=== PATIENT | female | born 1965 | race Caucasian/White ===

== ENCOUNTER 2018-04-21 21:59 | Emergency (ER) | payer BC ==
[~2018-04-21] VITALS: Ht 162.6 cm; Wt 64.4 kg
[~2018-04-21 21:59] MED LIST: ALBU.083IS IH; ALBU90OI INH; AMOX500 PO; BARIATRIC MULTIVIT PO; BROVANA IH; BUDE.25 NEB; CLAR500 PO; CYAN100 PO; CYCL10 PO; Cyclobenzaprine5 MG PO; DOCU100; HYDACE5 PO; HYDGUAL120 PO; IBUP800; KETO10 PO; LORA10ER PO; MONT10T PO; NAPR550 PO; Naprosyn375 MG PO; ONDA4ODT MM; Percocet 5-3251 EACH PO; RXHYDGUAS PO; [UNRECOGNIZED DRUG - REMARK]
[2018-04-22 03:03] LABS: Source, Urine Clean Catch
[2018-04-22 03:05] LABS: Bilirubin, Urine Neg (Neg); Blood, Urine Neg (Neg); Glucose Qualitative, Urine Neg (Neg); Ketones, Urine Neg (Neg); Leukocyte Esterase, Urine Neg (Neg); Nitrite, Urine Neg (Neg); Protein, Urine Neg (Neg); Specific Gravity, Urine 1.005 (1.003-1.022); Urobilinogen, Urine NORM (Normal)
[2018-04-22 03:14] LABS: Appearance, Urine Clear (Clear); Color, Urine Yellow (P-Yellow)
[2018-04-22 03:25] LABS: Calcium, Ionized (POC) 1.12 mmol/L (1.10-1.46); Chloride (POC) 103 mmol/L (98-108); Creatinine (POC) 0.5 mg/dL (0.6-1.0); Glucose (ISTAT POC) 81 mg/dL (70-99); Hemoglobin (POC) 10.5 g/dL (12.0-16.0); Potassium (POC) 4.1 mmol/L (3.5-5.5); Sodium (POC) 136 mmol/L (135-148); Total CO2 (POC) 28 mmol/L (21-32)
[2018-04-22] MEDS ORDERED: Dazidox10 MG PO (03:27)
== END 2018-04-22 03:48 | disposition home or self-care (01) ==
LOC: ER 21:59
PROVIDERS: Emergency Medicine
DX: M54.9 Dorsalgia, unspecified (principal); G89.29 Other chronic pain; F17.200 Nicotine dependence, unspecified, uncomplicated
CPT/HCPCS: 36415; 80047; 81003; 85014; 99283

== ENCOUNTER 2019-01-31 17:43 | Inpatient (IN) | payer BC ==
[~2019-01-31] VITALS: Ht 160 cm; Wt 67.2 kg
[~2019-01-31 17:43] MED LIST changes: +Dazidox10 MG PO; +Hydrocodone-Ap1 EA20 PO; +Zofran Odt4 MG SL
[2019-01-31] MEDS ORDERED: MELO7.5 PO (18:05)
[2019-01-31] MEDS ORDERED: IBUP600 PO (18:06)
[2019-01-31] MEDS ORDERED: FERSU300 PO (19:26)
[2019-01-31] MEDS ORDERED: VITAMIN D50000 UNIT PO (19:26)
[2019-01-31] MEDS ORDERED: Norco 10-325 T1 EACH PO (19:27)
--- NOTE | 2019-01-31 21:20 | NUR ---
2119 ADMIT: PT ARRIVES TO ROOM 215 VIA GOURNEY FROM ER WTIH AT BEDSIDE; SLIDE SHEET TRANSFERRED TO BED. EXTRA LINENS REMOVED AND STREET CLOTHES REMOVED FROM LOWER BODY; PT TOLERATES REPOSITIONING WELL. PT AND SPOUSE ORIENTED TO BED, ROOM, FALL PRECAUTIONS, AND CALL SYSTEM.
--- NOTE | 2019-01-31 22:28 | NUR ---
2228: PT BECOMING INCREASINGLY AGITATED AND INSISTS SHE WANTS TO GO OUTSIDE AND SMOKE A CIGARETTE VIA WC WITH 'S ASSISTANCE; MAKES STATEMENTS OF RELUCTANCE TO IDEA OF PT BEING OOB. RISKS OF FATTY EMBOLISM, PE, UNCONTROLLED PAIN AND CREATING MORE DAMAGE TO LEFT HIP FX EXPLANINED TO PT. PT CONCRETE THINKING IN ABILITY TO GET OUT OF BED, SIT IN WC AND GO OUTSIDE TO SMOKE. AMA FORM OFFERED WITH DC OF IV AND MISSAEL AND PT AGREES TO ACCEPT NICOTINE PATCH AND PRN PAIN MEDICATION.
--- NOTE | 2019-02-01 07:00 | NUR ---
recvd report from previous RN Summer. pt a/o, pleasant/cooperative denies pain at this time. dr trivedi to consult with pt in room, orders for clear liquids til 1200
--- NOTE | 2019-02-01 07:35 | NUR ---
SUMMARY: NEW ADMIT LEFT HIP FX BY DR. MCDANIELS; ORTHO CONSULT COMPLETED BY ER. VSS, AFEBRILE, ROOM AIR. NPO IN ANTICIPATION OF PROCEDURE LATER THIS DAY. PAIN WELL CONTROLLED WITH 50 MCG IV FENTANYL.
[2019-02-01 11:17] LABS: BASOPHILS ABSOLUTE AUTO 0.05 K/mm3 (0.00-0.23); BASOPHILS PERCENT AUTO 1 % (0-2); EOSINOPHILS ABSOLUTE AUTO 0.05 K/mm3 (0.00-0.68); EOSINOPHILS PERCENT AUTO 1 % (0-6); Hematocrit 31.7 % (33.0-51.0); Hemoglobin 10.5 g/dL (11.5-16.0); IMMATURE GRAN ABSOLUTE AUTO 0.03 K/mm3 (0.00-0.10); IMMATURE GRAN PERCENT AUTO 0 % (0-1); LYMPHOCYTES ABSOLUTE AUTO 3.16 K/mm3 (0.84-5.20); LYMPHOCYTES PERCENT AUTO 35 % (21-46); MONOCYTES ABSOLUTE AUTO 0.83 K/mm3 (0.16-1.47); MONOCYTES PERCENT AUTO 9 % (4-13); Mean Corpuscular HGB 30.2 pg (26.0-34.0); Mean Corpuscular HGB Conc 33.1 g/dL (31.5-36.5); Mean Corpuscular Volume 91 fL (80-100); Mean Platelet Volume 9.7 fL (9.1-12.4); NEUTROPHILS ABSOLUTE AUTO 5.02 K/mm3 (1.96-9.15); NEUTROPHILS PERCENT AUTO 55 % (41-73); Platelet Count 263 K/mm3 (150-400); RDW Coefficient Variation 17.6 % (11.7-14.2); RDW Standard Deviation 58.5 fL (35.1-46.3); Red Blood Cell Count 3.48 M/mm3 (3.80-5.20); White Blood Cell Count 9.14 K/mm3 (4.00-11.30)
[2019-02-01 11:32] LABS: International Normalized Ratio 0.96; Prothrombin Time Results 10.2 Sec (9.7-11.5)
[2019-02-01 11:35] LABS: Alanine Aminotransfer (ALT/SGP 15 U/L (12-78); Albumin, Blood 2.6 g/dL (3.4-5.0); Alk Phos 55 U/L (50-136); Anion Gap 4 mmol/L (6-16); Aspartate Aminotrans (AST/SGOT 11 U/L (12-37); Bilirubin, Total 0.4 mg/dL (0.1-1.0); Blood Urea Nitrogen 7 mg/dL (8-24); Bun/Creatinine Ratio 15.2 (12.0-20.0); CO2, Blood 25 mmol/L (21-32); Calcium, Blood 7.9 mg/dL (8.5-10.1); Chloride, Blood 109 mmol/L (98-108); Creatinine, Blood 0.46 mg/dL (0.40-1.00); Globulin, Blood 2.7 g/dL (2.2-4.0); Glomerular Filtration Rate >60 (60-); Glucose, Blood 74 mg/dL (70-99); Potassium, Blood 4.5 mmol/L (3.5-5.5); Sodium, Blood 138 mmol/L (136-145); Total Protein, Blood 5.3 g/dL (6.4-8.2)
--- NOTE | 2019-02-01 13:27 | NUR ---
FROM SURGICAL FLOOR TO [facility] ADMISSION STARTED TO UNIT.
--- NOTE | 2019-02-01 13:28 | NUR ---
pt transferred to day surgery via stretcher by LARA Landeros
--- NOTE | 2019-02-01 16:20 | NUR ---
PATIENT RETURNED TO ROOM FROM PACU AT THIS TIME. AWAKE. STATES L HIP PAIN 6/10, BACK PAIN 7/10. DENIES NAUSEA, SOB, CP. VSS. LS CLEAR. SATS > 90% ON RA. HRR. BT'S X 4. L HIP W/ AQUACEL DRESSING, D&I. WIGGLES TOES. HX OF N/T TO LE'S R/T BACK INJURY. FC PATENT AND DRAINING CLEAR YELLOW URINE. PRADEEP HOSE AND PAS IN PLACE. K PAD APPLIED TO BACK. CONT TO MONITOR.
--- NOTE | 2019-02-01 17:07 | NUR ---
PATIENT TAKING JELLO AND TEA W/O C/O. PO PAIN TICKET SCHEDULER. TALKING WITH VISITORS.
--- NOTE | 2019-02-01 18:17 | NUR ---
MEDICATED WITH IV PAIN MED FOR INCREASE IN PAIN. PATIENT REPOSITIONED WITH GOOD RESULTS. TOLERATING PO. FC DRAINING WELL, TO BE D/C'D IN AM. CONT TO MONITOR.
--- NOTE | 2019-02-01 22:51 | NUR ---
5 MIN AND THEN LAID BACK DOWN. RN NOTIFIED AND APTIENT ENCOURAGED TO TRY AGAIN LATER.
[2019-02-02 04:28] LABS: BASOPHILS ABSOLUTE AUTO 0.04 K/mm3 (0.00-0.23); BASOPHILS PERCENT AUTO 1 % (0-2); EOSINOPHILS ABSOLUTE AUTO 0.15 K/mm3 (0.00-0.68); EOSINOPHILS PERCENT AUTO 2 % (0-6); Hematocrit 31.3 % (33.0-51.0); Hemoglobin 10.2 g/dL (11.5-16.0); IMMATURE GRAN ABSOLUTE AUTO 0.03 K/mm3 (0.00-0.10); IMMATURE GRAN PERCENT AUTO 0 % (0-1); LYMPHOCYTES ABSOLUTE AUTO 2.69 K/mm3 (0.84-5.20); LYMPHOCYTES PERCENT AUTO 33 % (21-46); MONOCYTES ABSOLUTE AUTO 0.68 K/mm3 (0.16-1.47); MONOCYTES PERCENT AUTO 8 % (4-13); Mean Corpuscular HGB 30.2 pg (26.0-34.0); Mean Corpuscular HGB Conc 32.6 g/dL (31.5-36.5); Mean Corpuscular Volume 93 fL (80-100); Mean Platelet Volume 9.6 fL (9.1-12.4); NEUTROPHILS ABSOLUTE AUTO 4.56 K/mm3 (1.96-9.15); NEUTROPHILS PERCENT AUTO 56 % (41-73); Platelet Count 230 K/mm3 (150-400); RDW Coefficient Variation 17.5 % (11.7-14.2); RDW Standard Deviation 59.8 fL (35.1-46.3); Red Blood Cell Count 3.38 M/mm3 (3.80-5.20); White Blood Cell Count 8.15 K/mm3 (4.00-11.30)
[2019-02-02 04:48] LABS: Anion Gap 4 mmol/L (6-16); Blood Urea Nitrogen 7 mg/dL (8-24); Bun/Creatinine Ratio 15.7 (12.0-20.0); CO2, Blood 26 mmol/L (21-32); Calcium, Blood 7.8 mg/dL (8.5-10.1); Chloride, Blood 110 mmol/L (98-108); Creatinine, Blood 0.45 mg/dL (0.40-1.00); Glomerular Filtration Rate >60 (60-); Glucose, Blood 77 mg/dL (70-99); Potassium, Blood 4.5 mmol/L (3.5-5.5); Sodium, Blood 140 mmol/L (136-145)
--- NOTE | 2019-02-02 06:42 | NUR ---
SHIFT SUMMARY POD #1 LEFT FEMUR REPAIR. N[place]LEON TORRES REMAINS C/D/I. CIRC WNL. PT HAS DANGLED AT THE BDESIDE X 1, SHE IS NOW SITTING IN A CHAIR AT THE BEDSIDE. PAIN MANAGED WITH PO ROXYCODONE, TYLENOL, & IV TORADOL. TOLERATING PO INTAKE. MISSAEL D/C'D THIS AM. VSS. CALL LIGHT IN REACH
--- NOTE | 2019-02-02 10:45 | NUR ---
02/02/19 1045 Zara Menjivar VERIFICATIONS: EDIT CHART.
[2019-02-02] MEDS ORDERED: ASPI325 PO (11:00)
[2019-02-02] MEDS ORDERED: Percocet 5-3251 EACH PO (11:00)
--- NOTE | 2019-02-02 12:30 | NUR ---
PATIENT D/C'D HOME WITH SPOUSE AT THIS TIME. PATIENT STATES UNDERSTANDING OF MEDS, ACTIVITY PER PT, WOUND CARE, F/U APPT, ETC. TOLERATING PO. PAIN AT TOLERABLE LEVEL PER PATIENT. NO C/O AT THIS TIME.
== END 2019-02-02 12:31 | disposition home or self-care (01) | DRG 482 ==
LOC: ER 17:43 → SURS 19:31 → ERHOLD 19:31 → SURS 21:15 → ERHOLD 21:20 → SURS 21:20 → ERHOLD 02-01 15:30 → SURS 02-02 12:31
PROVIDERS: Anesthesiology; Orthopaedic Surgery; ADMIT Orthopaedic Surgery
PROC: 0QS734Z Reposition Left Upper Femur with Internal Fixation Device, Percutaneous Approach (ICD-10-PCS; principal; 2019-02-01 14:00)
DX: S72.002A Fracture of unspecified part of neck of left femur, initial encounter for closed fracture (principal); W17.2XXA Fall into hole, initial encounter; Y93.01 Activity, walking, marching and hiking; J44.9 Chronic obstructive pulmonary disease, unspecified; M54.9 Dorsalgia, unspecified; F17.210 Nicotine dependence, cigarettes, uncomplicated
CPT/HCPCS: 36415; 51702; 71045; 73502; 80048; 80053; 85025; 85027; 85610; 93005; 93010; 96374-59; 96375-59; 97116; 97162; 97165; 97530; 97535; 99284-25; A9270; C1713; C1769; J0690; J1170; J2250; J2270; J2405; J2704; J3010; J7030; J7120

== ENCOUNTER 2019-03-07 08:32 | Emergency (ER) | payer BC ==
[~2019-03-07] VITALS: Ht 162.6 cm; Wt 70.8 kg
[~2019-03-07 08:32] MED LIST changes: +ASPI325 PO; +FERSU300 PO; +IBUP600 PO; +MELO7.5 PO; +Norco 10-325 T1 EACH PO; +VITAMIN D50000 UNIT PO
[2019-03-07] MEDS ORDERED: Augmentin 875-1 EACH PO (09:03)
== END 2019-03-07 09:38 | disposition home or self-care (01) ==
LOC: ER 08:32
DX: S61.451A Open bite of right hand, initial encounter (principal); L03.113 Cellulitis of right upper limb; W55.01XA Bitten by cat, initial encounter; Z79.899 Other long term (current) drug therapy; Z79.82 Long term (current) use of aspirin; J44.9 Chronic obstructive pulmonary disease, unspecified; F17.210 Nicotine dependence, cigarettes, uncomplicated
CPT/HCPCS: 90471; 90714; 99283-25

== ENCOUNTER 2019-03-30 06:06 | Emergency (ER) | payer BC ==
[~2019-03-30] VITALS: Ht 162.6 cm; Wt 66.7 kg
[~2019-03-30 06:06] MED LIST changes: +Augmentin 875-1 EACH PO
[2019-03-30] MEDS ORDERED: Norco 10-325 T1 EACH PO (08:39)
== END 2019-03-30 09:13 | disposition home or self-care (01) ==
LOC: ER 06:06
DX: M25.552 Pain in left hip (principal); F17.210 Nicotine dependence, cigarettes, uncomplicated; Z96.642 Presence of left artificial hip joint; Z79.899 Other long term (current) drug therapy; Z79.82 Long term (current) use of aspirin
CPT/HCPCS: 73502; 99283-25

== ENCOUNTER 2019-04-15 00:46 | Inpatient (IN) | payer BC ==
[~2019-04-15] VITALS: Ht 162.6 cm; Wt 67.2 kg
[2019-04-15 02:47] LABS: BASOPHILS ABSOLUTE AUTO 0.03 K/mm3 (0.00-0.23); BASOPHILS PERCENT AUTO 0 % (0-2); EOSINOPHILS PERCENT AUTO 0 % (0-6); Hematocrit 25.6 % (33.0-51.0); Hemoglobin 9.6 g/dL (11.5-16.0); IMMATURE GRAN ABSOLUTE AUTO 0.19 K/mm3 (0.00-0.10); IMMATURE GRAN PERCENT AUTO 1 % (0-1); LYMPHOCYTES ABSOLUTE AUTO 0.96 K/mm3 (0.84-5.20); LYMPHOCYTES PERCENT AUTO 4 % (21-46); MONOCYTES PERCENT AUTO 6 % (4-13); Mean Corpuscular HGB 30.6 pg (26.0-34.0); Mean Corpuscular HGB Conc 37.5 g/dL (31.5-36.5); Mean Corpuscular Volume 82 fL (80-100); Mean Platelet Volume 9.2 fL (9.1-12.4); NEUTROPHILS ABSOLUTE AUTO 21.16 K/mm3 (1.96-9.15); NEUTROPHILS PERCENT AUTO 90 % (41-73); Platelet Count 641 K/mm3 (150-400); RDW Coefficient Variation 15.9 % (11.7-14.2); Red Blood Cell Count 3.14 M/mm3 (3.80-5.20); White Blood Cell Count 23.64 K/mm3 (4.00-11.30)
[2019-04-15 03:08] LABS: Alanine Aminotransfer (ALT/SGP 24 U/L (12-78); Albumin, Blood 1.6 g/dL (3.4-5.0); Albumin/Globulin Ratio 0.4 (0.8-1.8); Alk Phos 259 U/L (50-136); Anion Gap 9 mmol/L (6-16); Aspartate Aminotrans (AST/SGOT 49 U/L (12-37); Bilirubin, Total 1.4 mg/dL (0.1-1.0); Blood Urea Nitrogen 6 mg/dL (8-24); Bun/Creatinine Ratio 16.9 (12.0-20.0); CO2, Blood 26 mmol/L (21-32); Chloride, Blood 88 mmol/L (98-108); Creatinine, Blood 0.35 mg/dL (0.40-1.00); Glomerular Filtration Rate >60 (60-); Glucose, Blood 72 mg/dL (70-99); Potassium, Blood 4.8 mmol/L (3.5-5.5); Sodium, Blood 123 mmol/L (136-145); Total Protein, Blood 5.6 g/dL (6.4-8.2); Troponin I <0.015 ng/mL (0.000-0.040)
[2019-04-15 05:52] LABS: Source, Urine Clean Catch
[2019-04-15 06:02] LABS: Appearance, Urine Clear (Clear); Bilirubin, Urine Neg (Neg); Blood, Urine Neg (Neg); Color, Urine Yellow (P-Yellow); Glucose Qualitative, Urine Neg (Neg); Ketones, Urine 1+ (Neg); Leukocyte Esterase, Urine 1+ (Neg); Nitrite, Urine Pos (Neg); Protein, Urine Neg (Neg); Urobilinogen, Urine 1+ (Normal)
[2019-04-15 06:12] LABS: Bacteria Many /hpf; Red Blood Cells, Urine 0-2 /hpf (0-2); Squamous Epithelial Cells Not Seen /hpf (Few)
--- NOTE | 2019-04-15 07:44 | NUR ---
PT ARRIVES TO ICU VIA STRETCHER AT 0618. PT IS ALERT AND ORIENTED TO SELF, SITUATION, PLACE, AND FAMILY. COMPLAINING OF SEVERE PAIN IN HER LEFT LEG, NECK, BACK, STOMACH, AND CHEST. DESCRIBES THE NECK PAIN A NERVE PAIN THAT GOES THROUGH HER ENTIRE BODY. THE CHEST PAIN IS A HEAVYNESS. 10/10 PAIN IN ALL LOCATIONS. PT HAVING DIFFICULTY KEEPING HER EYES OPEN, BUT IS NOT DROWSY. PT IS IN SINUS TACH, BP STABLE; AFEBRILE. SHE IS ON ROOM AIR SAT'ING HIGH 90'S. PT IS MOANING AND GROANING, AND CANNOT GET IN A COMFORTABLE POSITION, AND CHANGING HER POSITION AND MANIPULATING IT WITH PILLOWS HAS BEEN A CHALLENGE. SHE HAS BEEN REQUIRING A LOT OF CARE THE LAST TWO WEEKS, AND "EVERYTHING HAS ESCALATED IN THE LAST 8 OR SO HOURS". PT IS NON AMBULATORY FOR THE LAST TWO WEEKS AND HAS BEEN SLEEPING IN HER CHAIR AT HOME, BECAUSE IT IS TOO DIFFICULT TO GET IN HER BED. SHE HAS A DECUBITUS ULCER ON HER COCCYX, WHICH HAS BEEN PHOTOGRPAHED AND PLACED IN THE CHART. SHE IS NEGATIVE FOR C-SPINE, STATUS POST GLF. PT HAD A HIP REPLACEMENT IN HER LEFT HIP IN JANUARY OR FEBRUARY (SHE STATES JANUARY, ER REPORT STATES FEBRUARY). SHE HAD AN APPOINTMENT TO CHANGE THE SCREWS IN HER HIP FOR THIS COMING TUESDAY WITH DR. ARIAS. IS NOW AT BEDSIDE, BED IS LOW AND LOCKED. CALL LIGHT WITHIN REACH. VANCOMYCIN IS RUNNING WITH NS (100 ML/HR). 50MCG OF FENTANYL WAS GIVEN AND HAD LITTLE EFFECT. PT IS CURRENTLY 8/10 PAIN NOW. STATES HER GOAL IS 5/10. GAVE REPORT TO JEFF BERMUDEZ.
--- NOTE | 2019-04-15 11:20 | NUR ---
"ADMITTING SUPERVISOR | REPORT TO NERY BERMUDEZ Patient VSS. Waiting on doctors to see patient for surgery."
--- NOTE | 2019-04-15 11:25 | NUR ---
ASSUMED CARE A/O DR LONG AT BEDSIDE TALKING WITH PT 2530 OR STAFF TALK PT TO OR PER BED NO ACUTE CHANGES
--- NOTE | 2019-04-15 11:49 | NUR ---
04/15/19 1149 Noy Dai PT ON SCHEDULED ANTIBIOTICS
--- NOTE | 2019-04-15 11:57 | NUR ---
0745 PT IS C/O PAIN "EVERYWHERE". STARTES THAT THIS HAS BEEN THE WAY PAIN HAS BEEN THE LAST FEW WEEKS. PT IS SPECIFICALLY NOTED IN ABD ON LMQ AND IN L LEG. HOWEVER PAIN IS ALSO NOTED ON NECK, HANDS, FEET AND MID BACK. PT NOTED PAIN FOR FEW WEEKS AND HAS POOR PAIN TOLERACE IN GENERAL WITH CURRENT C/O PAIN AT LEVEL 8/10. WILL INQUIRE TO POSSIBLE TELEVISION ENGINEERING TEACHER TO FOLLOW. PT HAS CANAS OF ORANGE URINE AND SL CLOUDY. IV SITES LAC AND LATER A R FA PLACED PER MARIA TERESA BERMUDEZ. PT IS SL FEBRILE NOTED. L THIGH IS VISIBLY SWOLLEN AND OLD INCISION SITE IS NOTED W/O EXTENSIVE REDNESS BUT SOME LOCAL FIRMNESS TO THE SURROUNDING TISSUE IS NOTED. L FOOT IS SOMEWHAT COOLER THAN R. NS AT 100ML.
--- NOTE | 2019-04-15 12:30 | NUR ---
PT TO SURG WITH SURG STAFF AT 1045 VIA BED. DIRECTOR AMBULATORY FENT. AND IVF STOPPED AND IN ROOM. PT U.O NOTED.
--- NOTE | 2019-04-15 13:25 | NUR ---
PATIENT RETURNED FROM PACU [id number]. BP 137/64, HR 105, 99% RA, C/O 9/10 PAIN IN L HIP. INCISION ON L HIP COVERED BY AQUACELL DRESSING WITH HEMOVAC ATTACHED.
--- NOTE | 2019-04-15 18:23 | NUR ---
A&O X3, SLEEPY AT TIMES. C/O 7-10 PAIN IN L HIP AND NECK; PLACED ON FENTANYL BRIEFCASE SEWER. STOPPED BRIEFCASE SEWER WHEN PT WENT TO OR AT ~1120, AMOUNTS INFUSED LOST. NO SUPPLEMENTAL OXYGEN IN USE. HR 102-120, NO PERIPHERAL EDEMA. LBM 04/14, ATTEMPTED BEDPAN, UNSUCCESSFUL. GOOD URINE OUTPUT. 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 L HIP INCISION CD&I, COVERED WITH AQUACELL, HEMOVAC DRAINED 170 ML SINCE RETURN FROM OR. HAS LOW PAIN THRESHOLD, IS HAVING ANXIETY. POSITIVE BLOOD CULTURES NOTED, GRAM POSITIVE COCCI IN CLUSTERS. ATE SMALL AMT DINNER. HAS NORCO ORDERED FOR PAIN IN ADDITION TO BRIEFCASE SEWER.
--- NOTE | 2019-04-15 19:52 | NUR ---
ASSUMED CARE RECEIVED REPORT FROM JEFF RN. PT IS SOMNOLENT IN BED; MOANING QUIETLY. NS IS INFUSING AT 100ML/HR, FENTANYL CAFE WORKER - 12.5MCG Q15M UPON DEMAND. SCD'S ARE IN PLACE. WOUNDVAC IS CONNECTED TO LEFT HIP FOLLOWING I&D TODAY. VITALS ARE STABLE CURRENTLY. IS AT BEDSIDE. BED IS LOW AND LOCKED. CALL LIGHT WITHIN REACH.
[2019-04-15 21:25] LABS: Vancomycin, Trough 12.5 ug/mL (5.0-10.0)
[2019-04-16 05:49] LABS: BASOPHILS ABSOLUTE AUTO 0.03 K/mm3 (0.00-0.23); BASOPHILS PERCENT AUTO 0 % (0-2); EOSINOPHILS PERCENT AUTO 0 % (0-6); Hematocrit 23.7 % (33.0-51.0); Hemoglobin 8.5 g/dL (11.5-16.0); IMMATURE GRAN ABSOLUTE AUTO 0.24 K/mm3 (0.00-0.10); IMMATURE GRAN PERCENT AUTO 1 % (0-1); LYMPHOCYTES ABSOLUTE AUTO 1.18 K/mm3 (0.84-5.20); LYMPHOCYTES PERCENT AUTO 6 % (21-46); MONOCYTES ABSOLUTE AUTO 1.12 K/mm3 (0.16-1.47); MONOCYTES PERCENT AUTO 5 % (4-13); Mean Corpuscular HGB 29.6 pg (26.0-34.0); Mean Corpuscular HGB Conc 35.9 g/dL (31.5-36.5); Mean Corpuscular Volume 83 fL (80-100); Mean Platelet Volume 8.9 fL (9.1-12.4); NEUTROPHILS ABSOLUTE AUTO 18.22 K/mm3 (1.96-9.15); NEUTROPHILS PERCENT AUTO 88 % (41-73); Platelet Count 527 K/mm3 (150-400); RDW Coefficient Variation 16.3 % (11.7-14.2); RDW Standard Deviation 46.7 fL (35.1-46.3); Red Blood Cell Count 2.87 M/mm3 (3.80-5.20); White Blood Cell Count 20.79 K/mm3 (4.00-11.30)
[2019-04-16 06:04] LABS: Magnesium, Blood 1.9 mg/dL (1.6-2.4)
[2019-04-16 06:06] LABS: Alanine Aminotransfer (ALT/SGP 13 U/L (12-78); Albumin, Blood 1.4 g/dL (3.4-5.0); Albumin/Globulin Ratio 0.4 (0.8-1.8); Alk Phos 188 U/L (50-136); Anion Gap 8 mmol/L (6-16); Aspartate Aminotrans (AST/SGOT 23 U/L (12-37); Bilirubin, Total 0.9 mg/dL (0.1-1.0); Blood Urea Nitrogen 4 mg/dL (8-24); Bun/Creatinine Ratio 12.4 (12.0-20.0); CO2, Blood 24 mmol/L (21-32); Calcium, Blood 7.5 mg/dL (8.5-10.1); Chloride, Blood 101 mmol/L (98-108); Creatinine, Blood 0.32 mg/dL (0.40-1.00); Globulin, Blood 3.4 g/dL (2.2-4.0); Glomerular Filtration Rate >60 (60-); Glucose, Blood 102 mg/dL (70-99); Phosphorus, Blood 2.4 mg/dL (2.5-4.9); Potassium, Blood 3.8 mmol/L (3.5-5.5); Total Protein, Blood 4.8 g/dL (6.4-8.2)
[2019-04-16 06:10] LABS: Sodium, Blood 133 mmol/L (136-145)
--- NOTE | 2019-04-16 06:48 | NUR ---
SHIFT SUMMARY PT IS ALERT AND ORIENTED TO SITUATION, PLACE, SELF, AND . SHE IS IN EXTREEME PAIN WHENEVER SHE IS AWAKE. COMPLAINS OF A NERVE PAIN THAT STARTS IN HER NECK AND RADIATES THROUGHOUT HER ENTIRE BODY, A GAS PAIN IN HER ABDOMEN THAT "...FEELS LIKE SHE IS GOING TO EXPLODE.", THROBBING PAIN IN HER LEFT HIP - ESPECIALLY WHEN TOUCHED OR MANIPULATED, AND ACHING BACK PAIN. SHE DOES NOT LIKE TO BE MOVED/REPOSITIONED, BUT SHE HAS AN UNSTAGEABLE PRESSURE ULCER ON HER COCCYX AND I WAS ABLE TO GET HER TO BE ON HER RIGHT SIDE. SHE IS VERY ANXIOUS AND I BELIEVE THAT PLAYS INTO HER PAIN TO A DEGREE. SHE IS ON ROOM AIR AND SAT'ING FINE. SHE IS IN NSR TO SINUS TACH. SHE HAS A CANAS AND MAKING ADEQUATE URINE OUTPUT. NO BM OVERNIGHT. ABODMEN IS SLIGHTLY FIRM OR AT LEAST MORE FIRM THAN USUAL PER PATIENT REPORT. I GOT AN ORDER FOR SIMETHICONE FOR HER GAS PAIN BUT HAS NOT HELPED ACCORDING TO THE PT. SHE IS ON A FENTANYL TREND INVESTIGATOR GTTP THAT GIVES 12.5MCG BOLUS DOSES Q15M UPON DEMAND. SHE NEEDS ENCOURAGEMENT TO PRESS THE TREND INVESTIGATOR PUMP HERSELF. NS IS INFUSING AT 100ML/HR. VANC AND ZOSYN HAVE BEEN PIGGYBACKED ON THE NS. SHE PULLED OUT HER LEFT AC IV OVERNIGHT BY ACCIDENT. SHE HAS A WOUNDVAC TO HER LEFT HIP S/P I&D THAT WAS PERFORMED YESTERDAY. SLEPT AT BEDSIDE OVERNIGHT. BED IS LOW AND LOCKED. CALL LIGHT WITHIN REACH.
--- NOTE | 2019-04-16 11:07 | NUR ---
echocardiogram completed
--- NOTE | 2019-04-16 11:26 | NUR ---
PT OVERALL PAIN IS IMPROVED BUT REMAINS VERY SENSITIVE TO PAIN AND MOVEMENT. SOME OF THE PAIN SEEMS UNRELATED TO PT OVERALL SX OR INFECTION PROCEDURE BUT WILL CONT TO FOLLOW AND ASSIST PAIN CONTROL. PT IS IN NO RESP DISTRESS, VSS, SATS ON RA GOOD. PT HEMOVAC IS DRAINING SEROSANG. DRAINAGE AND IS ARMED FOR SX. CANAS IS PATENT.
[2019-04-16 12:04] LABS: Adenovirus Not Detected (NOT DETECT); Bordetella pertussis Not Detected (NOT DETECT); Chlamydophila pneumoniae Not Detected (NOT DETECT); Coronavirus 229E Not Detected (NOT DETECT); Coronavirus HKU1 Not Detected (NOT DETECT); Coronavirus NL63 Not Detected (NOT DETECT); Coronavirus OC43 Not Detected (NOT DETECT); Human Metapneumovirus Not Detected (NOT DETECT); Human Rhinovirus/Enterovirus Not Detected (NOT DETECT); Influenza A Not Detected (NOT DETECT); Influenza A/2009-H1 Not Detected (NOT DETECT); Influenza A/H1 Not Detected (NOT DETECT); Influenza A/H3 Not Detected (NOT DETECT); Influenza B Not Detected (NOT DETECT); Mycoplasma pneumoniae Not Detected (NOT DETECT); Parainfluenza Virus 1 Not Detected (NOT DETECT); Parainfluenza Virus 2 Not Detected (NOT DETECT); Parainfluenza Virus 3 Not Detected (NOT DETECT); Parainfluenza Virus 4 Not Detected (NOT DETECT); Respiratory Syncytial Virus Not Detected (NOT DETECT)
[2019-04-16 12:11] LABS: Percent Saturation 25.7 % (15.0-50.0)
[2019-04-16 12:12] LABS: Source, Urine Catheter
[2019-04-16 12:31] LABS: Bilirubin, Urine Neg (Neg); Blood, Urine 1+ (Neg); Glucose Qualitative, Urine Neg (Neg); Ketones, Urine Neg (Neg); Leukocyte Esterase, Urine 1+ (Neg); Nitrite, Urine Neg (Neg); Protein, Urine 1+ (Neg); Specific Gravity, Urine 1.015 (1.003-1.022); Urobilinogen, Urine NORM (Normal); pH, Urine 6.5 (5.0-8.0)
[2019-04-16 12:59] LABS: Appearance, Urine Clear (Clear); Color, Urine Yellow (P-Yellow)
[2019-04-16 13:01] LABS: Granular Casts 0-2 /lpf (0)
[2019-04-16 13:04] LABS: Bacteria Few /hpf; Squamous Epithelial Cells Rare /hpf (Few)
--- NOTE | 2019-04-16 14:40 | NUR ---
PT PAIN AND ANXIETY IMPROVED WITH MEDICATION CHANGES TODAY NOTED. PT SLEEPING.
--- NOTE | 2019-04-16 16:34 | NUR ---
Per admit trigger, I attempted to meet with pt to offer prayer and encouragement. Pt was sleeping. Spouse at bedside asked me not to awaken pt. He was bewildered as to why a community pharmacist was present as they are non-voodoo. No needs or concerns presented. Spouse was pleasantly dismissive.
--- NOTE | 2019-04-16 18:22 | NUR ---
PT MOVED AND C/O PAIN BUT RETURNED TO SLEEP AFTER 10-15 MIN OF BEING LEFT ALONE. PT IS MUCH CALMER AND ABLE TO DISCUSS TOMORROW W/O CRYING. PAIN SEEMS CONTROLED AND CURRENTLY MANNAGED. VS, SATS HAVE BEEN STABLE. THE I.D. DOCTOR CONSULT WAS CALLED FOR CLARRIFICATION BUT THERE IS NO CURRENT I.D. COVERAGE TIL 04/30/19 LOCALLY, [facility] IS RECOMMENDED ALTERNITIVE BACKUP.
--- NOTE | 2019-04-16 18:40 | NUR ---
REPORT CALLED TO CLEMENTE BERMUDEZ AND WILL TRANSPORT PER CHAIR AND LIFT TO BED IN PCU.
--- NOTE | 2019-04-16 18:46 | NUR ---
PT HAS SET UP IN CHAIR AND HAS RESTED WELL THIS SHIFT. PT BP WNL NOTED. I/O NOTED. PT HAS CONT TO SX ORAL AND HAS HAD GOOD COUGH BUT DOES NOT PRODUCE A STRONG COUGH. PT CONT TO BE ALERT AND COOP/PLEASANT BUT BUT SPEECH IS SLOW AT TIMES AND SL GARBLED BUT HAS BEEN APPROP. TO CONVERSATION THIS DAY.
--- NOTE | 2019-04-16 19:44 | NUR ---
ASSUMED CARE, BEDSIDE REPORT RECEIVED. PT IS RESTING QUIETLY RECLINING IN BED AND APPEARS TO BE SLEEPING AT THIS TIME, SPOUSE AT BEDSIDE, DENIES NEEDS AT THIS TIME.
--- NOTE | 2019-04-16 20:00 | NUR ---
CALLED TO ROOM BY SPOUSE, PT AWAKE AND TEARFUL, REQUESTING TO BE REPOSITIONED AT THIS TIME, STATES THAT SHE IS FEARFUL REGARDING INCREASED PAIN FOLLOWING PROCEDURE TOMORROW. SHE DENIES CP/PRESSURE, DENIES INCREASING SOB/DYSPNEA, ADMITS TO CONTINUING NUMBNESS/TINGLING HOWEVER DENIES INCREASE IN AREAS AFFECTED. LUNGS CLEAR THROUGHOUT, MAINTAINING SATS ON ROOM AIR, NO VISIBLE INCREASED WORK OF BREATHING. HRR, SINUS ON MONITOR, RATE 70-80S, PRESSURE MAINTAINING, PULSES FULL X 4 EXTREMITIES, SKIN PWD, CAP REFILL BRISK. ABD DISTENDED, ACTIVE BOWEL TONES ARE NOTED, PT C/O TENDERNESS WITH PALPATION, STATES THAT SHE "JUST FEELS FULL" REQUESTS SIMETHICONE ADMINISTRATION WITH HS MEDS. CANAS IN PLACE DRAINING CLEAR SUHA URINE TO GRAVITY, ADEQUATE AMOUNTS AT THIS TIME. DRESSING NOTED TO LEFT LATERAL THIGH/HIP, CLEAN DRY AND INTACT, NO REDNESS OR SWELLING VISIBLE BEYOND EDGES OF DRESSING, HEMOVAC IN PLACE DRAINING SEROSANGUINOUS FLUID AT THIS TIME. SPOUSE REMAINS AT BEDSIDE. PT ASSISTED TO REPOSITION TO LEFT SIDE AND TOLERATED WELL.
[2019-04-17 05:31] LABS: BASOPHILS ABSOLUTE AUTO 0.02 K/mm3 (0.00-0.23); BASOPHILS PERCENT AUTO 0 % (0-2); EOSINOPHILS PERCENT AUTO 0 % (0-6); Hemoglobin 7.4 g/dL (11.5-16.0); IMMATURE GRAN ABSOLUTE AUTO 0.33 K/mm3 (0.00-0.10); IMMATURE GRAN PERCENT AUTO 2 % (0-1); LYMPHOCYTES ABSOLUTE AUTO 1.83 K/mm3 (0.84-5.20); LYMPHOCYTES PERCENT AUTO 10 % (21-46); MONOCYTES ABSOLUTE AUTO 1.22 K/mm3 (0.16-1.47); MONOCYTES PERCENT AUTO 7 % (4-13); Mean Corpuscular HGB 29.4 pg (26.0-34.0); Mean Corpuscular HGB Conc 35.2 g/dL (31.5-36.5); Mean Corpuscular Volume 83 fL (80-100); Mean Platelet Volume 8.8 fL (9.1-12.4); NEUTROPHILS ABSOLUTE AUTO 15.34 K/mm3 (1.96-9.15); NEUTROPHILS PERCENT AUTO 82 % (41-73); Platelet Count 485 K/mm3 (150-400); RDW Coefficient Variation 16.8 % (11.7-14.2); RDW Standard Deviation 47.7 fL (35.1-46.3); Red Blood Cell Count 2.52 M/mm3 (3.80-5.20); White Blood Cell Count 18.74 K/mm3 (4.00-11.30)
[2019-04-17 05:48] LABS: Anion Gap 8 mmol/L (6-16); Blood Urea Nitrogen 9 mg/dL (8-24); Bun/Creatinine Ratio 27.6 (12.0-20.0); CO2, Blood 22 mmol/L (21-32); Calcium, Blood 7.4 mg/dL (8.5-10.1); Chloride, Blood 104 mmol/L (98-108); Creatinine, Blood 0.33 mg/dL (0.40-1.00); Glomerular Filtration Rate >60 (60-); Glucose, Blood 79 mg/dL (70-99); Magnesium, Blood 1.9 mg/dL (1.6-2.4); Phosphorus, Blood 1.6 mg/dL (2.5-4.9); Potassium, Blood 3.3 mmol/L (3.5-5.5); Sodium, Blood 134 mmol/L (136-145)
--- NOTE | 2019-04-17 06:05 | NUR ---
PT RESTS QUIETLY THROUGHOUT SHIFT, NPO AT MIDNOC FOR OR THIS AM. SHE IS FREQUENTLY TEARFUL AND STATES THAT SHE FEELS "LIKE AN INVALID" SHE HAS STATED FRUSTRATION WITH BEING SO SICK. SHE HAS STATED THAT SHE IS AFRAID OF SURGERY THIS AM SECONDARY TO FEAR OF INCREASED PAIN FOLLOWING PROCEDURE, DISCUSSED PT EXPECTATIONS REGARDING PAIN FOLLOWING PROCEDURE AND REASSURANCE PROVIDED. VITAL SIGNS HAVE MAINTAINED STABLE THROUGHOUT NOC, PT REMAINS AFEBRILE.
--- NOTE | 2019-04-17 06:40 | NUR ---
PT TO DAY SURGERY VIA BED
--- NOTE | 2019-04-17 06:42 | NUR ---
History, Chart, Medications and Allergies reviewed before start of procedure. Patient confirms NPO status and agrees with scheduled surgery. and mom at bedside.
--- NOTE | 2019-04-17 07:12 | NUR ---
Left hip prepped with 2% Chlorhexidine cloth wipe, avoiding wound that is covered in dressing.
--- NOTE | 2019-04-17 07:30 | NUR ---
ASSUMED CARE: PT OUT OF ROOM FOR SURGICAL PROCEDURE AT THIS TIME
--- NOTE | 2019-04-17 11:02 | NUR ---
PT TRANSFERRED TO SURGICAL FLOOR FROM PACU. REPORT GIVEN TO LARA MCKEON.
--- NOTE | 2019-04-17 11:28 | NUR ---
ARRIVAL TO UNIT S/P I&D AND HARDWARE REMOVAL OF L HIP BY DR. ARIAS. GAUZE DRESSINGS IN PLACE WITH X2 HEMOVACS THAT ARE CDI. PT COMPLAINING OF MORE LOWER BACK PAIN THAN HIP PAIN. KPAD OFFERED FOR COMFORT. PT DROWSY BUT EASILY AWAKENED AND IS VERBALLY SPEAKING HER NEEDS. CANAS PATENT AND DRAINING CLEAR YELLOW. IVF INFUSING PER ORDERS. PT YUNI SIPS OF CLEARS. POST OP VS IN PROGRESS AND STABLE.
[2019-04-17 13:51] LABS: Vancomycin, Trough 17.3 ug/mL (5.0-10.0)
--- NOTE | 2019-04-17 16:49 | NUR ---
SHIFT SUMMARY S/P I&D WITH HARDWARE REMOVAL OF LEFT HIP. GAUZE DRESSINGS CDI AND X2 HEMOVACS IN PLACE. PT MEDICATED WITH 2 NORCO AND TYLENOL PRN FOR PAIN. PT SLOWLY YUNI MECH SOFT DIET. IVF INFUSING PER ORDERS. CANAS IN PLACE WITH DARK YELLOW URINE. PT DOES COMPLAIN OF MILD ABD PAIN WITH SLIGHT NAUSEA. PT VERY ANXIOUS AND TEARFUL AT TIMES WITH CARE, BUT IS EASILY REASSURED. FAMILY PRESENT AT BEDSIDE FOR SUPPORT. CALL LIGHT WITHIN REACH.
[2019-04-18 03:35] LABS: BASOPHILS ABSOLUTE AUTO 0.01 K/mm3 (0.00-0.23); BASOPHILS PERCENT AUTO 0 % (0-2); EOSINOPHILS PERCENT AUTO 0 % (0-6); Hematocrit 19.7 % (33.0-51.0); Hemoglobin 6.9 g/dL (11.5-16.0); IMMATURE GRAN PERCENT AUTO 3 % (0-1); LYMPHOCYTES ABSOLUTE AUTO 1.99 K/mm3 (0.84-5.20); LYMPHOCYTES PERCENT AUTO 13 % (21-46); MONOCYTES ABSOLUTE AUTO 1.51 K/mm3 (0.16-1.47); MONOCYTES PERCENT AUTO 10 % (4-13); Mean Corpuscular HGB 29.9 pg (26.0-34.0); Mean Corpuscular Volume 85 fL (80-100); Mean Platelet Volume 8.8 fL (9.1-12.4); NEUTROPHILS ABSOLUTE AUTO 11.89 K/mm3 (1.96-9.15); NEUTROPHILS PERCENT AUTO 75 % (41-73); Platelet Count 461 K/mm3 (150-400); RDW Coefficient Variation 17.5 % (11.7-14.2); RDW Standard Deviation 50.9 fL (35.1-46.3); Red Blood Cell Count 2.31 M/mm3 (3.80-5.20)
[2019-04-18 03:57] LABS: Alanine Aminotransfer (ALT/SGP 17 U/L (12-78); Albumin, Blood 1.2 g/dL (3.4-5.0); Albumin/Globulin Ratio 0.4 (0.8-1.8); Alk Phos 138 U/L (50-136); Anion Gap 9 mmol/L (6-16); Aspartate Aminotrans (AST/SGOT 32 U/L (12-37); Bilirubin, Total 0.5 mg/dL (0.1-1.0); Blood Urea Nitrogen 9 mg/dL (8-24); Bun/Creatinine Ratio 22.4 (12.0-20.0); CO2, Blood 21 mmol/L (21-32); Calcium, Blood 7.2 mg/dL (8.5-10.1); Chloride, Blood 106 mmol/L (98-108); Globulin, Blood 3.2 g/dL (2.2-4.0); Glomerular Filtration Rate >60 (60-); Glucose, Blood 76 mg/dL (70-99); Potassium, Blood 3.2 mmol/L (3.5-5.5); Sodium, Blood 136 mmol/L (136-145); Total Protein, Blood 4.4 g/dL (6.4-8.2)
[2019-04-18 04:00] LABS: Thyroid Stimulating Hormone 0.913 uIU/mL (0.360-4.800)
--- NOTE | 2019-04-18 07:46 | NUR ---
0746: ARCHIE FLANAGAN FROM ORTHO ROUND ON PT AND IS HAPPY WITH DRESSING AND DRAINS WELL PAIN CONTROL IN NOC. H&H IS 6.9/21.4 THIS AM AND ORTHO AWARE; THIS RN NOTIFIES DR. Danay CRUMP VIA TELEPHONE OF H&H RESULTS, NO NEW ORDERS VIA PHONE.
--- NOTE | 2019-04-18 19:12 | NUR ---
SUMMARY PT RECIEVED 1 UNIT PRBC & ALBUMIN TODAY. SHE REMAINS A&O X4. HER HAS BEEN AT THE BEDSIDE AND ASSISTS WITH FEEDING. DRSG REMAINS C/D/I. HEMOVAC X2, SUCTION IN PLACE. 240 ML SEROSANGUINOUS DRAINAGE NOTED IN #2, SCANT DRAINAGE NOTED IN #1. PT WAS UNABLE TO WORK WITH PT/OT DUE TO WEAKNESS AND EXHAUSTION. ROM WAS DONE IN THE BED. PT ENC TO TCDB DURING Q2 TURNS. PT IS RELUCTANCT TO SUGGESTIONS AND NEEDS CONSTANT REASSURANCE. PT HAS BEEN ENC TO DO MUCH POSSIBLE FOR HERSELF. VSS REMAIN STABLE, RESP UNLABORED, DIM IN THE BASES. CALL LIGHT IN REACH. REPORT GIVEN TO PETER BERMUDEZ
[2019-04-19 05:13] LABS: BASOPHILS ABSOLUTE AUTO 0.02 K/mm3 (0.00-0.23); BASOPHILS PERCENT AUTO 0 % (0-2); EOSINOPHILS ABSOLUTE AUTO 0.01 K/mm3 (0.00-0.68); EOSINOPHILS PERCENT AUTO 0 % (0-6); Hemoglobin 7.6 g/dL (11.5-16.0); IMMATURE GRAN PERCENT AUTO 4 % (0-1); LYMPHOCYTES PERCENT AUTO 12 % (21-46); MONOCYTES ABSOLUTE AUTO 1.03 K/mm3 (0.16-1.47); MONOCYTES PERCENT AUTO 7 % (4-13); Mean Corpuscular HGB 29.8 pg (26.0-34.0); Mean Corpuscular HGB Conc 34.5 g/dL (31.5-36.5); Mean Corpuscular Volume 86 fL (80-100); Mean Platelet Volume 8.5 fL (9.1-12.4); NEUTROPHILS ABSOLUTE AUTO 10.61 K/mm3 (1.96-9.15); NEUTROPHILS PERCENT AUTO 76 % (41-73); Platelet Count 401 K/mm3 (150-400); RDW Coefficient Variation 17.1 % (11.7-14.2); RDW Standard Deviation 50.4 fL (35.1-46.3); Red Blood Cell Count 2.55 M/mm3 (3.80-5.20); White Blood Cell Count 13.97 K/mm3 (4.00-11.30)
[2019-04-19 05:48] LABS: Alanine Aminotransfer (ALT/SGP 17 U/L (12-78); Albumin, Blood 1.5 g/dL (3.4-5.0); Albumin/Globulin Ratio 0.5 (0.8-1.8); Alk Phos 122 U/L (50-136); Anion Gap 11 mmol/L (6-16); Aspartate Aminotrans (AST/SGOT 25 U/L (12-37); Bilirubin, Total 0.5 mg/dL (0.1-1.0); Blood Urea Nitrogen 6 mg/dL (8-24); Bun/Creatinine Ratio 18.1 (12.0-20.0); CO2, Blood 19 mmol/L (21-32); Calcium, Blood 7.3 mg/dL (8.5-10.1); Chloride, Blood 108 mmol/L (98-108); Creatinine, Blood 0.33 mg/dL (0.40-1.00); Glomerular Filtration Rate >60 (60-); Glucose, Blood 72 mg/dL (70-99); Magnesium, Blood 1.8 mg/dL (1.6-2.4); Phosphorus, Blood 2.5 mg/dL (2.5-4.9); Potassium, Blood 2.5 mmol/L (3.5-5.5); Sodium, Blood 138 mmol/L (136-145); Total Protein, Blood 4.5 g/dL (6.4-8.2)
[2019-04-19 05:56] LABS: Vancomycin, Trough 21.2 ug/mL (5.0-10.0)
[2019-04-19 12:32] LABS: Campylobacter Sp Not Detected (NOT DETECT); Enteroaggregative E. coli-EAEC Not Detected (NOT DETECT); Plesiomonas Shigelloides Not Detected (NOT DETECT); Salmonella Sp Not Detected (NOT DETECT); Vibrio Cholerae Not Detected (NOT DETECT); Vibrio Sp Not Detected (NOT DETECT); Yersinia Enterocolitica Not Detected (NOT DETECT)
[2019-04-19 12:33] LABS: Adenovirus F 40/41 Not Detected (NOT DETECT); Astrovirus Not Detected (NOT DETECT); Cryptosporidium Not Detected (NOT DETECT); Cyclospora Cayetanensis Not Detected (NOT DETECT); E. Coli O157 Not Detected (NOT DETECT); Entamoeba Histolytica Not Detected (NOT DETECT); Enteropathogenic E. coli-EPEC Not Detected (NOT DETECT); Enterotoxigenic E. coli-ETEC Not Detected (NOT DETECT); Giardia Lamblia Not Detected (NOT DETECT); Norovirus GI/GII Not Detected (NOT DETECT); Rotavirus A Not Detected (NOT DETECT); Sapovirus Not Detected (NOT DETECT); Shiga Toxin-prod E. coli-STEC Not Detected (NOT DETECT); Shigella/Enteroin E. coli-EIEC Not Detected (NOT DETECT)
--- NOTE | 2019-04-19 18:32 | NUR ---
Summary: No acute changes through shift. Jessi remained painful with movement. She was able to have a bowel movement this shift. Her #1 Hemovac was discontinued by Dr. Fisher, the #2 continues to drain, over [address] Fisher and Ayad Marin changed her dressing this shift. She is being turned Q 2 due to the pressure ulcers on her buttocks and coccyx. She reports that she developed these at home and has had them for about a week prior to admission. The IV to her right wrist infiltrated and a new IV was started in her left wrist. She has been lethargic and complains of not being able to move. She is able to hold her water cup and bring it to her mouth with minimal assistance. She reports being unable to bend her left knee. Her heels are boggy and being floated on pillows. She has had several episdoes of tearfulness during the shift, which improved with calm reassurance, empathy, and encouragement. She uses her call light appropriately. Her has been at the bedside during the day, but has retired home for the evening.
[2019-04-20 05:30] LABS: BASOPHILS ABSOLUTE AUTO 0.01 K/mm3 (0.00-0.23); BASOPHILS PERCENT AUTO 0 % (0-2); EOSINOPHILS ABSOLUTE AUTO 0.03 K/mm3 (0.00-0.68); EOSINOPHILS PERCENT AUTO 0 % (0-6); Hematocrit 21.6 % (33.0-51.0); Hemoglobin 7.4 g/dL (11.5-16.0); IMMATURE GRAN ABSOLUTE AUTO 0.65 K/mm3 (0.00-0.10); IMMATURE GRAN PERCENT AUTO 4 % (0-1); LYMPHOCYTES ABSOLUTE AUTO 1.85 K/mm3 (0.84-5.20); LYMPHOCYTES PERCENT AUTO 12 % (21-46); MONOCYTES ABSOLUTE AUTO 0.64 K/mm3 (0.16-1.47); MONOCYTES PERCENT AUTO 4 % (4-13); Mean Corpuscular HGB 30.1 pg (26.0-34.0); Mean Corpuscular HGB Conc 34.3 g/dL (31.5-36.5); Mean Corpuscular Volume 88 fL (80-100); Mean Platelet Volume 8.7 fL (9.1-12.4); NEUTROPHILS ABSOLUTE AUTO 12.06 K/mm3 (1.96-9.15); NEUTROPHILS PERCENT AUTO 79 % (41-73); Platelet Count 433 K/mm3 (150-400); RDW Coefficient Variation 17.5 % (11.7-14.2); RDW Standard Deviation 52.1 fL (35.1-46.3); Red Blood Cell Count 2.46 M/mm3 (3.80-5.20); White Blood Cell Count 15.24 K/mm3 (4.00-11.30)
[2019-04-20 05:52] LABS: Anion Gap 10 mmol/L (6-16); Blood Urea Nitrogen 3 mg/dL (8-24); Bun/Creatinine Ratio 11.6 (12.0-20.0); CO2, Blood 21 mmol/L (21-32); Calcium, Blood 7.5 mg/dL (8.5-10.1); Chloride, Blood 109 mmol/L (98-108); Creatinine, Blood 0.26 mg/dL (0.40-1.00); Glomerular Filtration Rate >60 (60-); Glucose, Blood 74 mg/dL (70-99); Potassium, Blood 2.5 mmol/L (3.5-5.5); Sodium, Blood 140 mmol/L (136-145)
--- NOTE | 2019-04-20 18:06 | NUR ---
MADDI HAS BEEN MORE ALERT TODAY. SHE WORKED [facility]. SHE STATED THAT SHE WAS "WORN OUT" AFTER WORKING WITH THEM, BUT HAS BEEN MORE INVOLVED IN HER ADL'S. SHE HAS HAD SEVERAL EPISODES OF DIARRHEA TODAY REQUIRING THE DRESSING ON HER COCCYX TO BE CHANGED WITH EACH BOWEL MOVEMENT. THE DRESSING TO HER HIP WAS SATURATED AT APPROX. 1542 AND WAS REPLACED WITH AN ISLAND DRESSING OVER HER INCISION AND GAUZE SECURED BY TAPE OVER THE DRAIN SITE #1 WHICH WAS REMOVED BY DR. ARIAS YESTERDAY. HER APPETITE HAS BEEN IMPROVED TODAY. SHE IS ABLE TO MAKE HER NEEDS KNOWN. SHE REPORTS GOOD PAIN CONTROL, ESPECIALLY THIS AFTERNOON, WITH THE FENTANYL AND NORCO. HER ASSISTED HER TO EAT LUNCH AND DINNER. SHE IS LYING IN BED, PROPPED ON HER RIGHT SIDE WITH HER CALL LIGHT IN REACH. SHE IS BEING TURNED EVERY 2 HOURS.
--- NOTE | 2019-04-21 04:42 | NUR ---
SHIFT SUMMARY: PT POD#4 FOR I&D TO LEFT HIP S/P HIP REPAIR IN JANUARY. HEMOVAC TO LEFT HIP DRAINING SEROSANGUINOUS FLUID. 120 ML EMPTIED THIS SHIFT. PT HAS BEEN NPO SINCE MIDNIGHT FOR POSSIBLE ADDITIONAL I&D TODAY. PAIN MANAGED WITH NORCO 10MG PER EMAR. PT HAVING FREQ EPISODES OF DIARRHEA IN BEGINNING OF SHIFT. INCONTINENT. NEW ORDER FOR IMMODIUM PRN. GIVEN ONCE. PREVIOUS GI PANEL NEGATIVE. NEW ORDER FOR STOOL COLLECTION TO R/O CDIFF. WAITING FOR BM. CANAS PATENT AND DRAINING YELLOW URINE. PT TURNED T/O SHIFT. PRESSURE ULCER TO COCCYX COVERED WITH MEPILEX. CHANGED TWICE THIS SHIFT. PT REPORTS UNABLE TO DO BASIC ADL'S R/T NEUROPATHY. 2 ASSIST FOR REPOSTIONING AND ATTENDS CHANGE. TELE SHOWS NSR.
[2019-04-21 09:11] LABS: BASOPHILS ABSOLUTE AUTO 0.02 K/mm3 (0.00-0.23); BASOPHILS PERCENT AUTO 0 % (0-2); EOSINOPHILS ABSOLUTE AUTO 0.04 K/mm3 (0.00-0.68); EOSINOPHILS PERCENT AUTO 0 % (0-6); Hematocrit 21.5 % (33.0-51.0); Hemoglobin 7.4 g/dL (11.5-16.0); IMMATURE GRAN ABSOLUTE AUTO 0.94 K/mm3 (0.00-0.10); IMMATURE GRAN PERCENT AUTO 5 % (0-1); LYMPHOCYTES ABSOLUTE AUTO 1.98 K/mm3 (0.84-5.20); LYMPHOCYTES PERCENT AUTO 10 % (21-46); MONOCYTES ABSOLUTE AUTO 0.75 K/mm3 (0.16-1.47); MONOCYTES PERCENT AUTO 4 % (4-13); Mean Corpuscular HGB 30.2 pg (26.0-34.0); Mean Corpuscular HGB Conc 34.4 g/dL (31.5-36.5); Mean Corpuscular Volume 88 fL (80-100); Mean Platelet Volume 8.6 fL (9.1-12.4); NEUTROPHILS ABSOLUTE AUTO 15.99 K/mm3 (1.96-9.15); NEUTROPHILS PERCENT AUTO 81 % (41-73); Platelet Count 454 K/mm3 (150-400); RDW Coefficient Variation 18.3 % (11.7-14.2); RDW Standard Deviation 51.8 fL (35.1-46.3); Red Blood Cell Count 2.45 M/mm3 (3.80-5.20); White Blood Cell Count 19.72 K/mm3 (4.00-11.30)
[2019-04-21 09:26] LABS: Anion Gap 9 mmol/L (6-16); Blood Urea Nitrogen 3 mg/dL (8-24); Bun/Creatinine Ratio 11.7 (12.0-20.0); CO2, Blood 21 mmol/L (21-32); Calcium, Blood 7.3 mg/dL (8.5-10.1); Chloride, Blood 111 mmol/L (98-108); Creatinine, Blood 0.26 mg/dL (0.40-1.00); Glomerular Filtration Rate >60 (60-); Glucose, Blood 75 mg/dL (70-99); Sodium, Blood 141 mmol/L (136-145)
--- NOTE | 2019-04-21 16:54 | NUR ---
SHIFT SUMMARY DR. SEBASTIAN IN TO TALK TO PATIENT ABOUT OPTIONS R/T TREATMENT PLAN. PT PREFERRED TO HAVE ANOTHER CT OF HER HIP AND THEN POSSIBLE SURGERY TOMORROW MORNING DEPENDING ON RESULTS. NPO AT MIDNIGHT. PT RECEIVING 2 NORCO FOR PAIN MANAGEMENT. YUNI SOFT DIET. DRESSING TO HIP REMAINS CDI. HEMOVAC WITH 50CC OUT THIS SHIFT. CANAS PATENT WITH CLEAR YELLOW URINE. TRANSFUSING 1 UNIT PRBCS AT THIS TIME PER ORDERS. FAMILY AT BEDSIDE FOR SUPPORT.
--- NOTE | 2019-04-21 23:47 | NUR ---
PATIENT TRANSFERRED TO [facility]. pATIENT UNDERSTANDS THE NEED FOR TRANSFER AND AGREES. AWARE OF TRANSFER AND WILL BE TRAVELING IN THE AM TO SEE PATIENT. REPORT TO PATRICK BERMUDEZ @ [facility]. PAIN UNDERCONTROL IN LT HIP, NO NAUSEA, NO VOMITING.
== END 2019-04-21 23:46 | disposition short-term general hospital (02) | DRG 463 ==
LOC: ER 00:46 → SURS 06:02 → ER 06:02 → ICUW 06:03 → SURS 06:03 → ICUW 06:03 → SURS 06:14 → ICUW 06:14 → SURS 04-17 10:15
PROVIDERS: Emergency Medicine; Internal Medicine; Orthopaedic Surgery; ADMIT Internal Medicine
PROC: 0JBM0ZZ Excision of Left Upper Leg Subcutaneous Tissue and Fascia, Open Approach (ICD-10-PCS; 2019-04-15)
PROC: 0J9M3ZX Drainage of Left Upper Leg Subcutaneous Tissue and Fascia, Percutaneous Approach, Diagnostic (ICD-10-PCS; principal; 2019-04-15 12:30)
PROC: 30233N1 Transfusion of Nonautologous Red Blood Cells into Peripheral Vein, Percutaneous Approach (ICD-10-PCS; 2019-04-18)
PROC: 0SPB0JZ Removal of Synthetic Substitute from Left Hip Joint, Open Approach (ICD-10-PCS; 2019-04-19)
DX: T84.52XA Infection and inflammatory reaction due to internal left hip prosthesis, initial encounter (principal); A41.01 Sepsis due to Methicillin susceptible Staphylococcus aureus; T81.42XA Infection following a procedure, deep incisional surgical site, initial encounter; D62 Acute posthemorrhagic anemia; E87.1 Hypo-osmolality and hyponatremia; L89.150 Pressure ulcer of sacral region, unstageable; Z98.84 Bariatric surgery status; K13.79 Other lesions of oral mucosa; F06.4 Anxiety disorder due to known physiological condition; G62.9 Polyneuropathy, unspecified; J44.9 Chronic obstructive pulmonary disease, unspecified; E86.0 Dehydration
CPT/HCPCS: 0097U; 0099U; 36415; 36430; 51702; 70450; 71260; 72125; 73502; 73701; 74177; 80048; 80053; 80202; 81001; 82306; 82607; 82746; 83540; 83550; 83605; 83690; 83735; 84100; 84443; 84466; 84484; 85025; 85027; 85651; 86140; 86850; 86900; 86901; 86923; 87040; 87070; 87075; 87077; 87086; 87147; 87186; 87205; 93005; 93010; 93306; 96365-59; 96375-59; 97110; 97162; 97164; 97166; 97168; 97530; 97535; 99285-25; A9270; A9270-GY; G0480; J0690; J1100; J1170; J1650; J1885; J2250; J2405; J2543; J2704; J2916; J3010; J3370; J7030; J7120; P9016; P9041; P9046; Q9967

== ENCOUNTER 2019-07-13 14:00 | Emergency (ER) | payer BC ==
[~2019-07-13] VITALS: Ht 162.6 cm; Wt 55.3 kg
[2019-07-13] MEDS ORDERED: HYSINGLA ER30 MG PO (14:17)
[2019-07-13] MEDS ORDERED: GABA400 PO (14:17)
[2019-07-13] MEDS ORDERED: MAGNESIUM OXID500 MG PO (14:17)
[2019-07-13] MEDS ORDERED: BACL10 PO (14:18)
[2019-07-13] MEDS ORDERED: DOCU100 PO (14:19)
[2019-07-13] MEDS ORDERED: ARTIFICIAL TEAR15 M1 BOTHEYES (14:19)
[2019-07-13] MEDS ORDERED: Norco 10-325 T1 EACH PO (14:20)
[2019-07-13] MEDS ORDERED: BISA10S PR (14:20)
[2019-07-13] MEDS ORDERED: MILK OF MA400 MG/5 M PO (14:21)
[2019-07-13] MEDS ORDERED: HYDPAM25 PO (14:21)
[2019-07-13] MEDS ORDERED: GAVILAX17 GM PO (14:22)
[2019-07-13 15:18] LABS: BASOPHILS ABSOLUTE AUTO 0.05 K/mm3 (0.00-0.23); BASOPHILS PERCENT AUTO 1 % (0-2); EOSINOPHILS ABSOLUTE AUTO 0.18 K/mm3 (0.00-0.68); EOSINOPHILS PERCENT AUTO 2 % (0-6); Hematocrit 35.4 % (33.0-51.0); Hemoglobin 10.7 g/dL (11.5-16.0); IMMATURE GRAN ABSOLUTE AUTO 0.06 K/mm3 (0.00-0.10); IMMATURE GRAN PERCENT AUTO 1 % (0-1); LYMPHOCYTES ABSOLUTE AUTO 3.64 K/mm3 (0.84-5.20); LYMPHOCYTES PERCENT AUTO 36 % (21-46); MONOCYTES ABSOLUTE AUTO 0.77 K/mm3 (0.16-1.47); MONOCYTES PERCENT AUTO 8 % (4-13); Mean Corpuscular HGB 30.1 pg (26.0-34.0); Mean Corpuscular HGB Conc 30.2 g/dL (31.5-36.5); Mean Platelet Volume 8.4 fL (9.1-12.4); NEUTROPHILS ABSOLUTE AUTO 5.34 K/mm3 (1.96-9.15); NEUTROPHILS PERCENT AUTO 53 % (41-73); Platelet Count 343 K/mm3 (150-400); RDW Coefficient Variation 14.3 % (11.7-14.2); RDW Standard Deviation 52.5 fL (35.1-46.3); Red Blood Cell Count 3.55 M/mm3 (3.80-5.20); White Blood Cell Count 10.04 K/mm3 (4.00-11.30)
[2019-07-13 15:24] LABS: Mean Corpuscular Volume 100 fL (80-100)
[2019-07-13 15:55] LABS: Alanine Aminotransfer (ALT/SGP 10 U/L (12-78); Albumin, Blood 1.9 g/dL (3.4-5.0); Albumin/Globulin Ratio 0.4 (0.8-1.8); Alk Phos 119 U/L (50-136); Anion Gap 6 mmol/L (6-16); Aspartate Aminotrans (AST/SGOT 14 U/L (12-37); Bilirubin, Total <0.1 mg/dL (0.1-1.0); Blood Urea Nitrogen 14 mg/dL (8-24); Bun/Creatinine Ratio 63.6 (12.0-20.0); CO2, Blood 25 mmol/L (21-32); Calcium, Blood 8.7 mg/dL (8.5-10.1); Chloride, Blood 107 mmol/L (98-108); Creatinine, Blood 0.22 mg/dL (0.40-1.00); Globulin, Blood 4.8 g/dL (2.2-4.0); Glomerular Filtration Rate >60 (60-); Glucose, Blood 86 mg/dL (70-99); Potassium, Blood 3.9 mmol/L (3.5-5.5); Sodium, Blood 138 mmol/L (136-145); Total Protein, Blood 6.7 g/dL (6.4-8.2)
== END 2019-07-13 22:30 | disposition short-term general hospital (02) ==
LOC: ER 14:00
PROVIDERS: Emergency Medicine
DX: K68.12 Psoas muscle abscess (principal); M86.9 Osteomyelitis, unspecified; J44.9 Chronic obstructive pulmonary disease, unspecified; F41.9 Anxiety disorder, unspecified
CPT/HCPCS: 36415; 73723; 80053; 85025; 96374-59; 96375-59; 96376-59; 99285-25; A9577; J1170; J2060

== ENCOUNTER → 2019-07-27 | Outpatient (CLI) | payer BC ==
[~2019-07-27] MED LIST changes: +ARTIFICIAL TEAR15 M1 BOTHEYES; +BACL10 PO; +BISA10S PR; +DOCU100 PO; +GABA400 PO; +GAVILAX17 GM PO; +HYDPAM25 PO; +HYSINGLA ER30 MG PO; +MAGNESIUM OXID500 MG PO; +MILK OF MA400 MG/5 M PO
[2019-07-27 16:45] LABS: BASOPHILS ABSOLUTE AUTO 0.05 K/mm3 (0.00-0.23); BASOPHILS PERCENT AUTO 1 % (0-2); EOSINOPHILS ABSOLUTE AUTO 0.16 K/mm3 (0.00-0.68); EOSINOPHILS PERCENT AUTO 2 % (0-6); Hematocrit 29.4 % (33.0-51.0); Hemoglobin 9.3 g/dL (11.5-16.0); IMMATURE GRAN ABSOLUTE AUTO 0.09 K/mm3 (0.00-0.10); IMMATURE GRAN PERCENT AUTO 1 % (0-1); LYMPHOCYTES ABSOLUTE AUTO 3.92 K/mm3 (0.84-5.20); LYMPHOCYTES PERCENT AUTO 39 % (21-46); MONOCYTES ABSOLUTE AUTO 0.62 K/mm3 (0.16-1.47); MONOCYTES PERCENT AUTO 6 % (4-13); Mean Corpuscular HGB 29.9 pg (26.0-34.0); Mean Corpuscular HGB Conc 31.6 g/dL (31.5-36.5); Mean Corpuscular Volume 95 fL (80-100); Mean Platelet Volume 9.2 fL (9.1-12.4); NEUTROPHILS ABSOLUTE AUTO 5.25 K/mm3 (1.96-9.15); NEUTROPHILS PERCENT AUTO 52 % (41-73); Platelet Count 403 K/mm3 (150-400); RDW Coefficient Variation 15.5 % (11.7-14.2); RDW Standard Deviation 53.3 fL (35.1-46.3); Red Blood Cell Count 3.11 M/mm3 (3.80-5.20); White Blood Cell Count 10.09 K/mm3 (4.00-11.30)
[2019-07-27 17:10] LABS: Alanine Aminotransfer (ALT/SGP 9 U/L (12-78); Albumin, Blood 1.9 g/dL (3.4-5.0); Albumin/Globulin Ratio 0.5 (0.8-1.8); Alk Phos 157 U/L (50-136); Anion Gap 5 mmol/L (6-16); Aspartate Aminotrans (AST/SGOT 17 U/L (12-37); Bilirubin, Total 0.3 mg/dL (0.1-1.0); Blood Urea Nitrogen 8 mg/dL (8-24); Bun/Creatinine Ratio 26.3 (12.0-20.0); CO2, Blood 26 mmol/L (21-32); Calcium, Blood 7.9 mg/dL (8.5-10.1); Chloride, Blood 103 mmol/L (98-108); Globulin, Blood 3.9 g/dL (2.2-4.0); Glomerular Filtration Rate >60 (60-); Glucose, Blood 97 mg/dL (70-99); Sodium, Blood 134 mmol/L (136-145); Total Protein, Blood 5.8 g/dL (6.4-8.2)
== END | disposition home or self-care (01) ==
LOC: LAB SHORT 16:31 → LAB 16:31
PROVIDERS: Family Medicine
DX: T84.7XXD Infection and inflammatory reaction due to other internal orthopedic prosthetic devices, implants and grafts, subsequent encounter (principal); S72.002K Fracture of unspecified part of neck of left femur, subsequent encounter for closed fracture with nonunion
CPT/HCPCS: 80053; 85025; 86141

== ENCOUNTER → 2019-08-03 | Outpatient (CLI) | payer BC ==
[2019-08-03 19:54] LABS: BASOPHILS ABSOLUTE AUTO 0.05 K/mm3 (0.00-0.23); BASOPHILS PERCENT AUTO 1 % (0-2); EOSINOPHILS ABSOLUTE AUTO 0.18 K/mm3 (0.00-0.68); EOSINOPHILS PERCENT AUTO 2 % (0-6); Hematocrit 32.4 % (33.0-51.0); Hemoglobin 10.2 g/dL (11.5-16.0); IMMATURE GRAN ABSOLUTE AUTO 0.02 K/mm3 (0.00-0.10); IMMATURE GRAN PERCENT AUTO 0 % (0-1); LYMPHOCYTES ABSOLUTE AUTO 4.01 K/mm3 (0.84-5.20); LYMPHOCYTES PERCENT AUTO 45 % (21-46); MONOCYTES ABSOLUTE AUTO 0.65 K/mm3 (0.16-1.47); MONOCYTES PERCENT AUTO 7 % (4-13); Mean Corpuscular HGB 29.9 pg (26.0-34.0); Mean Corpuscular HGB Conc 31.5 g/dL (31.5-36.5); Mean Corpuscular Volume 95 fL (80-100); Mean Platelet Volume 10.2 fL (9.1-12.4); NEUTROPHILS ABSOLUTE AUTO 4.03 K/mm3 (1.96-9.15); NEUTROPHILS PERCENT AUTO 45 % (41-73); Platelet Count 286 K/mm3 (150-400); RDW Coefficient Variation 16.7 % (11.7-14.2); RDW Standard Deviation 57.8 fL (35.1-46.3); Red Blood Cell Count 3.41 M/mm3 (3.80-5.20); White Blood Cell Count 8.94 K/mm3 (4.00-11.30)
[2019-08-03 20:11] LABS: C-REACTIVE PROTEIN, EXT RANGE 0.687 mg/dL (0.000-0.300)
[2019-08-03 20:15] LABS: Alanine Aminotransfer (ALT/SGP 12 U/L (12-78); Albumin, Blood 1.7 g/dL (3.4-5.0); Albumin/Globulin Ratio 0.4 (0.8-1.8); Alk Phos 190 U/L (50-136); Anion Gap 5 mmol/L (6-16); Aspartate Aminotrans (AST/SGOT 18 U/L (12-37); Bilirubin, Total 0.2 mg/dL (0.1-1.0); Blood Urea Nitrogen 10 mg/dL (8-24); Bun/Creatinine Ratio 21.5 (12.0-20.0); CO2, Blood 23 mmol/L (21-32); Calcium, Blood 7.6 mg/dL (8.5-10.1); Chloride, Blood 109 mmol/L (98-108); Creatinine, Blood 0.47 mg/dL (0.40-1.00); Globulin, Blood 3.8 g/dL (2.2-4.0); Glomerular Filtration Rate >60 (60-); Glucose, Blood 118 mg/dL (70-99); Potassium, Blood 4.1 mmol/L (3.5-5.5); Sodium, Blood 137 mmol/L (136-145); Total Protein, Blood 5.5 g/dL (6.4-8.2)
== END | disposition home or self-care (01) ==
LOC: LAB SHORT 18:07 → LAB 18:07
PROVIDERS: Internal Medicine
DX: T84.7XXD Infection and inflammatory reaction due to other internal orthopedic prosthetic devices, implants and grafts, subsequent encounter (principal); S72.002K Fracture of unspecified part of neck of left femur, subsequent encounter for closed fracture with nonunion
CPT/HCPCS: 80053; 85025; 86140

== ENCOUNTER → 2019-08-10 | Outpatient (CLI) | payer BC ==
[2019-08-10 16:22] LABS: Mean Corpuscular HGB 30.1 pg (26.0-34.0); Mean Corpuscular HGB Conc 31.4 g/dL (31.5-36.5); Mean Corpuscular Volume 96 fL (80-100); Mean Platelet Volume 9.7 fL (9.1-12.4); Platelet Count 262 K/mm3 (150-400); RDW Coefficient Variation 17.3 % (11.7-14.2); RDW Standard Deviation 60.8 fL (35.1-46.3); Red Blood Cell Count 3.65 M/mm3 (3.80-5.20); White Blood Cell Count 5.97 K/mm3 (4.00-11.30)
[2019-08-10 16:41] LABS: C-REACTIVE PROTEIN, EXT RANGE 0.467 mg/dL (0.000-0.300)
[2019-08-10 16:43] LABS: Alanine Aminotransfer (ALT/SGP 134 U/L (12-78); Albumin, Blood 2.2 g/dL (3.4-5.0); Albumin/Globulin Ratio 0.5 (0.8-1.8); Alk Phos 375 U/L (50-136); Anion Gap 6 mmol/L (6-16); Aspartate Aminotrans (AST/SGOT 197 U/L (12-37); Bilirubin, Total 0.1 mg/dL (0.1-1.0); Blood Urea Nitrogen 9 mg/dL (8-24); Bun/Creatinine Ratio 34.4 (12.0-20.0); CO2, Blood 24 mmol/L (21-32); Calcium, Blood 8.2 mg/dL (8.5-10.1); Chloride, Blood 107 mmol/L (98-108); Creatinine, Blood 0.26 mg/dL (0.40-1.00); Globulin, Blood 4.2 g/dL (2.2-4.0); Glomerular Filtration Rate >60 (60-); Glucose, Blood 88 mg/dL (70-99); Potassium, Blood 3.6 mmol/L (3.5-5.5); Sodium, Blood 137 mmol/L (136-145); Total Protein, Blood 6.4 g/dL (6.4-8.2)
== END | disposition home or self-care (01) ==
LOC: LAB HH 14:45
PROVIDERS: Family Medicine
DX: T84.7XXD Infection and inflammatory reaction due to other internal orthopedic prosthetic devices, implants and grafts, subsequent encounter (principal)
CPT/HCPCS: 80053; 85027; 86140

== ENCOUNTER → 2019-08-17 | Outpatient (CLI) | payer BC ==
[2019-08-17 16:27] LABS: BASOPHILS ABSOLUTE AUTO 0.06 K/mm3 (0.00-0.23); BASOPHILS PERCENT AUTO 1 % (0-2); EOSINOPHILS ABSOLUTE AUTO 0.16 K/mm3 (0.00-0.68); EOSINOPHILS PERCENT AUTO 2 % (0-6); Hematocrit 34.9 % (33.0-51.0); Hemoglobin 10.8 g/dL (11.5-16.0); IMMATURE GRAN ABSOLUTE AUTO 0.03 K/mm3 (0.00-0.10); IMMATURE GRAN PERCENT AUTO 0 % (0-1); LYMPHOCYTES ABSOLUTE AUTO 3.59 K/mm3 (0.84-5.20); LYMPHOCYTES PERCENT AUTO 43 % (21-46); MONOCYTES ABSOLUTE AUTO 0.69 K/mm3 (0.16-1.47); MONOCYTES PERCENT AUTO 8 % (4-13); Mean Corpuscular HGB 30.3 pg (26.0-34.0); Mean Corpuscular HGB Conc 30.9 g/dL (31.5-36.5); Mean Corpuscular Volume 98 fL (80-100); Mean Platelet Volume 10.1 fL (9.1-12.4); NEUTROPHILS ABSOLUTE AUTO 3.76 K/mm3 (1.96-9.15); NEUTROPHILS PERCENT AUTO 45 % (41-73); Platelet Count 338 K/mm3 (150-400); RDW Coefficient Variation 17.1 % (11.7-14.2); RDW Standard Deviation 61.4 fL (35.1-46.3); Red Blood Cell Count 3.57 M/mm3 (3.80-5.20); White Blood Cell Count 8.29 K/mm3 (4.00-11.30)
[2019-08-17 17:00] LABS: C-REACTIVE PROTEIN, EXT RANGE <0.290 mg/dL (0.000-0.300)
[2019-08-17 17:03] LABS: Alanine Aminotransfer (ALT/SGP 23 U/L (12-78); Albumin, Blood 2.3 g/dL (3.4-5.0); Albumin/Globulin Ratio 0.6 (0.8-1.8); Alk Phos 172 U/L (50-136); Anion Gap 7 mmol/L (6-16); Aspartate Aminotrans (AST/SGOT 18 U/L (12-37); Bilirubin, Total 0.3 mg/dL (0.1-1.0); Blood Urea Nitrogen 9 mg/dL (8-24); Bun/Creatinine Ratio 29.3 (12.0-20.0); CO2, Blood 24 mmol/L (21-32); Calcium, Blood 8.2 mg/dL (8.5-10.1); Chloride, Blood 108 mmol/L (98-108); Creatinine, Blood 0.31 mg/dL (0.40-1.00); Globulin, Blood 3.7 g/dL (2.2-4.0); Glomerular Filtration Rate >60 (60-); Glucose, Blood 85 mg/dL (70-99); Potassium, Blood 3.9 mmol/L (3.5-5.5); Sodium, Blood 139 mmol/L (136-145)
== END | disposition home or self-care (01) ==
LOC: LAB HH 14:15
PROVIDERS: Nurse Practitioner Family
DX: T84.7XXD Infection and inflammatory reaction due to other internal orthopedic prosthetic devices, implants and grafts, subsequent encounter (principal); S72.002K Fracture of unspecified part of neck of left femur, subsequent encounter for closed fracture with nonunion
CPT/HCPCS: 80053; 85025; 86140

== ENCOUNTER → 2019-08-24 | Outpatient (CLI) | payer BC ==
[2019-08-24 17:31] LABS: Hematocrit 35.7 % (33.0-51.0); Hemoglobin 10.9 g/dL (11.5-16.0); Mean Corpuscular HGB 29.7 pg (26.0-34.0); Mean Corpuscular HGB Conc 30.5 g/dL (31.5-36.5); Mean Corpuscular Volume 97 fL (80-100); Mean Platelet Volume 10.3 fL (9.1-12.4); Platelet Count 296 K/mm3 (150-400); RDW Coefficient Variation 17.8 % (11.7-14.2); RDW Standard Deviation 64.1 fL (35.1-46.3); Red Blood Cell Count 3.67 M/mm3 (3.80-5.20); White Blood Cell Count 7.96 K/mm3 (4.00-11.30)
[2019-08-24 18:01] LABS: C-REACTIVE PROTEIN, EXT RANGE <0.290 mg/dL (0.000-0.300)
[2019-08-24 18:03] LABS: Alanine Aminotransfer (ALT/SGP 19 U/L (12-78); Albumin, Blood 2.5 g/dL (3.4-5.0); Albumin/Globulin Ratio 0.7 (0.8-1.8); Alk Phos 132 U/L (50-136); Anion Gap 6 mmol/L (6-16); Aspartate Aminotrans (AST/SGOT 19 U/L (12-37); BASOPHILS PERCENT MAN 0 % (0-2); Bilirubin, Total 0.2 mg/dL (0.1-1.0); Blood Urea Nitrogen 9 mg/dL (8-24); Bun/Creatinine Ratio 30.9 (12.0-20.0); CO2, Blood 24 mmol/L (21-32); Calcium, Blood 8.7 mg/dL (8.5-10.1); Chloride, Blood 106 mmol/L (98-108); Creatinine, Blood 0.29 mg/dL (0.40-1.00); EOSINOPHILS ABSOLUTE MAN 0.15 K/mm3 (0.00-0.68); EOSINOPHILS PERCENT MAN 2 % (0-6); Globulin, Blood 3.7 g/dL (2.2-4.0); Glomerular Filtration Rate >60 (60-); Glucose, Blood 101 mg/dL (70-99); LYMPHOCYTES ABSOLUTE MAN 4.77 K/mm3 (0.84-5.20); LYMPHOCYTES PERCENT MAN 60 % (21-46); MONOCYTES ABSOLUTE MAN 0.15 K/mm3 (0.16-1.47); MONOCYTES PERCENT MAN 2 % (4-13); NEUTROPHILS ABSOLUTE MAN 2.86 K/mm3 (1.96-9.15); Potassium, Blood 3.7 mmol/L (3.5-5.5); SEG NEUTROPHILS PERCENT MAN 36 % (41-73); Sodium, Blood 136 mmol/L (136-145); TOTAL CELLS COUNTED 100; Total Protein, Blood 6.2 g/dL (6.4-8.2)
== END | disposition home or self-care (01) ==
LOC: LAB HH 14:50 → LAB SHORT 14:50
PROVIDERS: Family Medicine
DX: T84.7XXD Infection and inflammatory reaction due to other internal orthopedic prosthetic devices, implants and grafts, subsequent encounter (principal)
CPT/HCPCS: 80053; 85007; 85027; 86140

== ENCOUNTER → 2019-08-31 | Outpatient (CLI) | payer BC ==
[2019-08-31 17:33] LABS: BASOPHILS ABSOLUTE AUTO 0.03 K/mm3 (0.00-0.23); BASOPHILS PERCENT AUTO 0 % (0-2); EOSINOPHILS ABSOLUTE AUTO 0.18 K/mm3 (0.00-0.68); EOSINOPHILS PERCENT AUTO 3 % (0-6); Hematocrit 32.9 % (33.0-51.0); Hemoglobin 10.1 g/dL (11.5-16.0); IMMATURE GRAN ABSOLUTE AUTO 0.05 K/mm3 (0.00-0.10); IMMATURE GRAN PERCENT AUTO 1 % (0-1); LYMPHOCYTES PERCENT AUTO 45 % (21-46); MONOCYTES ABSOLUTE AUTO 0.48 K/mm3 (0.16-1.47); MONOCYTES PERCENT AUTO 7 % (4-13); Mean Corpuscular HGB 30.5 pg (26.0-34.0); Mean Corpuscular HGB Conc 30.7 g/dL (31.5-36.5); Mean Corpuscular Volume 99 fL (80-100); Mean Platelet Volume 10.4 fL (9.1-12.4); NEUTROPHILS ABSOLUTE AUTO 3.24 K/mm3 (1.96-9.15); NEUTROPHILS PERCENT AUTO 45 % (41-73); Platelet Count 247 K/mm3 (150-400); RDW Coefficient Variation 18.4 % (11.7-14.2); RDW Standard Deviation 68.1 fL (35.1-46.3); Red Blood Cell Count 3.31 M/mm3 (3.80-5.20); White Blood Cell Count 7.18 K/mm3 (4.00-11.30)
[2019-08-31 17:51] LABS: C-REACTIVE PROTEIN, EXT RANGE <0.290 mg/dL (0.000-0.300)
[2019-08-31 17:52] LABS: Alanine Aminotransfer (ALT/SGP 28 U/L (12-78); Albumin, Blood 2.2 g/dL (3.4-5.0); Albumin/Globulin Ratio 0.7 (0.8-1.8); Alk Phos 134 U/L (50-136); Anion Gap 4 mmol/L (6-16); Aspartate Aminotrans (AST/SGOT 26 U/L (12-37); Bilirubin, Total 0.2 mg/dL (0.1-1.0); Blood Urea Nitrogen 7 mg/dL (8-24); Bun/Creatinine Ratio 26.1 (12.0-20.0); CO2, Blood 27 mmol/L (21-32); Calcium, Blood 8.3 mg/dL (8.5-10.1); Chloride, Blood 105 mmol/L (98-108); Creatinine, Blood 0.27 mg/dL (0.40-1.00); Globulin, Blood 3.2 g/dL (2.2-4.0); Glomerular Filtration Rate >60 (60-); Glucose, Blood 134 mg/dL (70-99); Potassium, Blood 3.4 mmol/L (3.5-5.5); Sodium, Blood 136 mmol/L (136-145); Total Protein, Blood 5.4 g/dL (6.4-8.2)
== END | disposition home or self-care (01) ==
LOC: LAB SHORT 15:15 → LAB 15:15
PROVIDERS: Nurse Practitioner Family
DX: T84.7XXD Infection and inflammatory reaction due to other internal orthopedic prosthetic devices, implants and grafts, subsequent encounter (principal)
CPT/HCPCS: 80053; 85025; 86140

== ENCOUNTER 2020-01-29 18:21 | Emergency (ER) | payer BC ==
[~2020-01-29] VITALS: Ht 165.1 cm; Wt 83.9 kg
[2020-01-29 18:59] LABS: BASOPHILS ABSOLUTE AUTO 0.05 K/mm3 (0.00-0.23); BASOPHILS PERCENT AUTO 1 % (0-2); EOSINOPHILS ABSOLUTE AUTO 0.09 K/mm3 (0.00-0.68); EOSINOPHILS PERCENT AUTO 1 % (0-6); Hematocrit 40.2 % (33.0-51.0); IMMATURE GRAN ABSOLUTE AUTO 0.03 K/mm3 (0.00-0.10); IMMATURE GRAN PERCENT AUTO 0 % (0-1); LYMPHOCYTES ABSOLUTE AUTO 4.23 K/mm3 (0.84-5.20); LYMPHOCYTES PERCENT AUTO 46 % (21-46); MONOCYTES ABSOLUTE AUTO 0.79 K/mm3 (0.16-1.47); MONOCYTES PERCENT AUTO 9 % (4-13); Mean Corpuscular HGB 31.7 pg (26.0-34.0); Mean Corpuscular HGB Conc 32.3 g/dL (31.5-36.5); Mean Corpuscular Volume 98 fL (80-100); Mean Platelet Volume 9.3 fL (9.1-12.4); NEUTROPHILS ABSOLUTE AUTO 3.95 K/mm3 (1.96-9.15); NEUTROPHILS PERCENT AUTO 43 % (41-73); Platelet Count 357 K/mm3 (150-400); RDW Coefficient Variation 15.7 % (11.7-14.2); RDW Standard Deviation 56.7 fL (35.1-46.3); White Blood Cell Count 9.14 K/mm3 (4.00-11.30)
[2020-01-29 19:29] LABS: Alanine Aminotransfer (ALT/SGP 17 U/L (12-78); Albumin, Blood 2.7 g/dL (3.4-5.0); Albumin/Globulin Ratio 0.7 (0.8-1.8); Alk Phos 137 U/L (50-136); Anion Gap 4 mmol/L (6-16); Aspartate Aminotrans (AST/SGOT 20 U/L (12-37); Bilirubin, Total 0.2 mg/dL (0.1-1.0); Blood Urea Nitrogen 8 mg/dL (8-24); CO2, Blood 27 mmol/L (21-32); Calcium, Blood 8.7 mg/dL (8.5-10.1); Chloride, Blood 103 mmol/L (98-108); Creatinine, Blood 0.42 mg/dL (0.40-1.00); Glomerular Filtration Rate >60 (60-); Glucose, Blood 90 mg/dL (70-99); Potassium, Blood 4.3 mmol/L (3.5-5.5); Sodium, Blood 134 mmol/L (136-145); Total Protein, Blood 6.7 g/dL (6.4-8.2)
[2020-01-29] MEDS ORDERED: Keflex500 MG PO (21:29)
[2020-01-29] MEDS ORDERED: Bactrim Ds Tab1 EACH PO (21:29)
== END 2020-01-29 22:08 | disposition home or self-care (01) ==
LOC: ER 18:21
PROVIDERS: Physician Assistant
DX: L03.116 Cellulitis of left lower limb (principal); Z79.82 Long term (current) use of aspirin; Z79.899 Other long term (current) drug therapy; J44.9 Chronic obstructive pulmonary disease, unspecified; F41.9 Anxiety disorder, unspecified; E66.01 Morbid (severe) obesity due to excess calories; Z68.30 Body mass index [BMI] 30.0-30.9, adult; Z87.891 Personal history of nicotine dependence
CPT/HCPCS: 36415; 73701; 80053; 85025; 96374; 99284-25; A9270-GY; J1170; Q9967

== ENCOUNTER 2020-10-13 16:28 | Inpatient (IN) | payer BC ==
[~2020-10-13] VITALS: Ht 160 cm; Wt 63.2 kg
[~2020-10-13 16:28] MED LIST changes: +Bactrim Ds Tab1 EACH PO; +Keflex500 MG PO
[2020-10-13 17:08] LABS: BASOPHILS ABSOLUTE AUTO 0.09 K/mm3 (0.00-0.23); BASOPHILS PERCENT AUTO 0 % (0-2); EOSINOPHILS ABSOLUTE AUTO 0.02 K/mm3 (0.00-0.68); EOSINOPHILS PERCENT AUTO 0 % (0-6); Hematocrit 28.3 % (33.0-51.0); Hemoglobin 9.9 g/dL (11.5-16.0); IMMATURE GRAN PERCENT AUTO 4 % (0-1); LYMPHOCYTES ABSOLUTE AUTO 2.43 K/mm3 (0.84-5.20); LYMPHOCYTES PERCENT AUTO 11 % (21-46); MONOCYTES ABSOLUTE AUTO 1.93 K/mm3 (0.16-1.47); MONOCYTES PERCENT AUTO 8 % (4-13); Mean Corpuscular HGB 31.2 pg (26.0-34.0); Mean Corpuscular Volume 89 fL (80-100); Mean Platelet Volume 8.8 fL (9.1-12.4); NEUTROPHILS ABSOLUTE AUTO 17.75 K/mm3 (1.96-9.15); NEUTROPHILS PERCENT AUTO 77 % (41-73); Platelet Count 554 K/mm3 (150-400); RDW Coefficient Variation 15.5 % (11.7-14.2); RDW Standard Deviation 50.7 fL (35.1-46.3); Red Blood Cell Count 3.17 M/mm3 (3.80-5.20); White Blood Cell Count 23.12 K/mm3 (4.00-11.30)
[2020-10-13 17:28] LABS: Alanine Aminotransfer (ALT/SGP 12 U/L (12-78); Albumin, Blood 1.9 g/dL (3.4-5.0); Albumin/Globulin Ratio 0.4 (0.8-1.8); Alk Phos 215 U/L (50-136); Anion Gap 6 mmol/L (6-16); Aspartate Aminotrans (AST/SGOT 18 U/L (12-37); Bilirubin, Total 0.5 mg/dL (0.1-1.0); Blood Urea Nitrogen 7 mg/dL (8-24); Bun/Creatinine Ratio 10.8 (12.0-20.0); CO2, Blood 26 mmol/L (21-32); Calcium, Blood 8.2 mg/dL (8.5-10.1); Chloride, Blood 101 mmol/L (98-108); Creatinine, Blood 0.65 mg/dL (0.40-1.00); Globulin, Blood 5.1 g/dL (2.2-4.0); Glomerular Filtration Rate >60 (60-); Glucose, Blood 81 mg/dL (70-99); Potassium, Blood 3.2 mmol/L (3.5-5.5); Sodium, Blood 133 mmol/L (136-145); Troponin I <0.015 ng/mL (0.000-0.040)
[2020-10-13 19:13] LABS: Source, Urine Clean Catch
[2020-10-13 19:20] LABS: Appearance, Urine Hazy (Clear); Bilirubin, Urine Neg (Neg); Blood, Urine 4+ (Neg); Color, Urine Yellow (P-Yellow); Glucose Qualitative, Urine Neg (Neg); Ketones, Urine 2+ (Neg); Leukocyte Esterase, Urine 3+ (Neg); Nitrite, Urine Neg (Neg); Protein, Urine 2+ (Neg); Specific Gravity, Urine 1.015 (1.003-1.022); Urobilinogen, Urine NORM (Normal)
[2020-10-13 19:32] LABS: White Blood Cells, Urine 50-100 /hpf (0-5)
[2020-10-13 19:33] LABS: Bacteria Many /hpf; Squamous Epithelial Cells Few /hpf (Few)
--- NOTE | 2020-10-13 22:45 | NUR ---
REPORT RECIEVED FROM RYAN (UI APPLICATION DEVELOPER) AND AWAITING PT T/F TO ROOM 339.
--- NOTE | 2020-10-13 23:00 | NUR ---
PT T/F TO ROOM 339 VIA GURNEY AT 2255 W/ AT BEDSIDE. SHE WAS ORIENTED TO ROOM AND CALL SYSTEM AND IS AWARE OF LIMITATIONS. BED ALARM ARMED FOR FALL RISK BUT PT KNOWS TO CALL FOR ASSIST OOB AND IS W/C BOUND AT BASELINE. CHRONIC L.HIP AND BACK PAIN SEVERELY LIMIT MOBILITY. WILL MAINTAIN TURN SCHEDULE AND ASSIST W/TOILETING PRN. BSC USED UPON T/F TO ROOM AND PT PIVOT T/F'D W/1PA. CALL LIGTH IN REACH.
[2020-10-13] MEDS ORDERED: HYSINGLA ER60 MG PO (23:28)
--- NOTE | 2020-10-14 00:50 | NUR ---
PT C/O ACUTE PAIN TO MOUTH AND ABDO W/CHRONIC PAIN TO L.HIP AND BACK. FENTANYL IV PRN RX'D BY AND WAS RECIEVED PER EMAR. WILL REEVALUATE FOR EFFECT. WARM BLANKET ALSO PROVIDED AND PT ASSISTED W/REPOSITIONING FOR IMPROVED COMFORT.
[2020-10-14 05:16] LABS: BASOPHILS ABSOLUTE AUTO 0.05 K/mm3 (0.00-0.23); BASOPHILS PERCENT AUTO 0 % (0-2); EOSINOPHILS ABSOLUTE AUTO 0.02 K/mm3 (0.00-0.68); EOSINOPHILS PERCENT AUTO 0 % (0-6); Hematocrit 22.1 % (33.0-51.0); Hemoglobin 7.5 g/dL (11.5-16.0); IMMATURE GRAN ABSOLUTE AUTO 0.54 K/mm3 (0.00-0.10); IMMATURE GRAN PERCENT AUTO 3 % (0-1); LYMPHOCYTES ABSOLUTE AUTO 2.16 K/mm3 (0.84-5.20); LYMPHOCYTES PERCENT AUTO 13 % (21-46); MONOCYTES ABSOLUTE AUTO 1.51 K/mm3 (0.16-1.47); MONOCYTES PERCENT AUTO 9 % (4-13); Mean Corpuscular HGB 30.6 pg (26.0-34.0); Mean Corpuscular HGB Conc 33.9 g/dL (31.5-36.5); Mean Corpuscular Volume 90 fL (80-100); Mean Platelet Volume 8.7 fL (9.1-12.4); NEUTROPHILS ABSOLUTE AUTO 12.86 K/mm3 (1.96-9.15); NEUTROPHILS PERCENT AUTO 75 % (41-73); Platelet Count 392 K/mm3 (150-400); RDW Coefficient Variation 15.5 % (11.7-14.2); RDW Standard Deviation 50.4 fL (35.1-46.3); Red Blood Cell Count 2.45 M/mm3 (3.80-5.20); White Blood Cell Count 17.14 K/mm3 (4.00-11.30)
[2020-10-14 05:34] LABS: Alanine Aminotransfer (ALT/SGP 8 U/L (12-78); Albumin, Blood 1.7 g/dL (3.4-5.0); Albumin/Globulin Ratio 0.5 (0.8-1.8); Alk Phos 148 U/L (50-136); Anion Gap 6 mmol/L (6-16); Aspartate Aminotrans (AST/SGOT 11 U/L (12-37); Bilirubin, Total 0.6 mg/dL (0.1-1.0); Blood Urea Nitrogen 5 mg/dL (8-24); Bun/Creatinine Ratio 8.1 (12.0-20.0); CO2, Blood 23 mmol/L (21-32); Calcium, Blood 7.5 mg/dL (8.5-10.1); Chloride, Blood 110 mmol/L (98-108); Creatinine, Blood 0.62 mg/dL (0.40-1.00); Globulin, Blood 3.7 g/dL (2.2-4.0); Glomerular Filtration Rate >60 (60-); Glucose, Blood 65 mg/dL (70-99); Potassium, Blood 3.9 mmol/L (3.5-5.5); Sodium, Blood 139 mmol/L (136-145); Total Protein, Blood 5.4 g/dL (6.4-8.2)
--- NOTE | 2020-10-14 05:53 | NUR ---
SUMMARY: PT A/OX4, INDEPENDENT IN ROOM AND SPECIFIES NEEDS. SHE'S DENIED CP, DIZZYNESS AND ALL S/S BRADYCARDIA OR CARDIAC DISTRESS. TROPS REMAIN (-) AND SHE'S BEEN NSR ON TELEMETRY W/HR 70'S-80'S BPM T/O NOCTE. PT IS NPO FOR STRESS TEST THIS AM. HER ONLY COMPLAINT WAS A CONNOR W/TYLENOL PRN RX'D BY AND RECIEVED THIS AM, WILL REEVALUATE FOR EFFECT. NO ACUTE CHANGES, VSS AND AFEBRILE. WCTM AND REPORT TO DAY RN.
--- NOTE | 2020-10-14 06:11 | NUR ---
SUMMARY: PT A/OX4, CALLS APPROPRIATELY AND SPECIFIES NEEDS. BED ALARM ON FOR FALL RISK BUT SHE IS AWARE OF LIMITATIONS AND IS W/C BOUND AT BASELINE. SHE'S 1P PIVOT T/F TO [facility] [place]/T BLE WEAKNESS AND CHRONIC L.HIP PAIN WHICH LIMITS MOBILITY. PT IS TEARFUL AT TIMES AND ADMITS TO ANXIETY AND DEPRESSION R/T ILLNESS. SHE'S HAD MULTI SX'S TO L.HIP AFTER FX W/REPAIR THEN INFECTION AND HARDWARE REMOVAL. FURTHER INTERVENTION STILL NEEDED WHEN PT HEALTHY/ABLE. SHE ALSO REPORTS CHRONIC BACK PAIN AND ACUTE MOUTH/ABDO PAIN D/T SORES LIKELY VIRAL IN ORIGIN. VALTREX COMMENCED, IV ABX RECIEVED IN ER FOR UROSEPSIS AND NS INFUSES AT 100 ML/HR. PT REPORTS PROBABLE DEHYDRATION R/T RECENT POOR PO INTAKE, CHICKEN BROTH PROVIDED PER REQUEST. SHE HAS BLISTERED APPEARING SORES TO BUTTOCKS WELL WHICH SHE SAYS ARE FROM BEING UNABLE TO WALK. THEY RESEMBLE THE ULCERS IN HER MOUTH BUT VERY WELL COULD BE PRESSURE SORES. PICS TAKEN AND MEPILEXES APPLIED. TURN SCHEDULE MAINTAINED FOR FURTHER SBD PREVENTION. FLU VAC RECIEVED. NO ACUTE CHANGES, VSS/AFEBRILE. WCTM AND REPORT TO DAY RN.
--- NOTE | 2020-10-14 18:14 | NUR ---
PT IS A/OX3,PLEASANT AND COOPERATIVE, SOMULANT, THE PT APPEARS TO BE BREATHING EASILY ON RA AT THIS TIME, THE PT WAS MEDICATED FOR PAIN T/O THE DAY, THE PT WORKED WITH THE PHYSICAL AND OCCUPATIONAL THERAPIST TODAY, PT WAS UP TO THE BSC, PT WAS ENCOURAGED TO DRINK FLUIDS, CALL LIGHT IN REACH, NO OTHER CHANGES NOTICED THIS SHIFT
--- NOTE | 2020-10-15 06:44 | NUR ---
SHIFT SUMMARY PT IS A 55 Y/O FEMALE, ADMITTED FOR SEPSIS R/T UTI. SHE IS A&O X 4, THOUGH TEARFUL AND ANXIOUS AT TIMES R/T PAIN CONTROL. PT HAS CHRONIC BACK PAIN, MEDICATED WITH PRN HYDROCODONE AND A HEAT PAD. NO C/O NAUSEA OR SOB. VITAL SIGNS STABLE. NO ACUTE CHANGES IN PT CONDITION NOTED DURING THE NIGHT. WILL CONTINUE TO MONITOR AND TREAT PER EMAR UNTIL HAND OFF TO DAY SHIFT RN.
[2020-10-15 07:49] LABS: BASOPHILS ABSOLUTE AUTO 0.06 K/mm3 (0.00-0.23); BASOPHILS PERCENT AUTO 0 % (0-2); EOSINOPHILS ABSOLUTE AUTO 0.04 K/mm3 (0.00-0.68); EOSINOPHILS PERCENT AUTO 0 % (0-6); Hematocrit 21.2 % (33.0-51.0); Hemoglobin 7.3 g/dL (11.5-16.0); IMMATURE GRAN ABSOLUTE AUTO 0.53 K/mm3 (0.00-0.10); IMMATURE GRAN PERCENT AUTO 3 % (0-1); LYMPHOCYTES ABSOLUTE AUTO 2.17 K/mm3 (0.84-5.20); LYMPHOCYTES PERCENT AUTO 12 % (21-46); MONOCYTES ABSOLUTE AUTO 1.43 K/mm3 (0.16-1.47); MONOCYTES PERCENT AUTO 8 % (4-13); Mean Corpuscular HGB 31.2 pg (26.0-34.0); Mean Corpuscular HGB Conc 34.4 g/dL (31.5-36.5); Mean Corpuscular Volume 91 fL (80-100); Mean Platelet Volume 8.8 fL (9.1-12.4); NEUTROPHILS ABSOLUTE AUTO 13.54 K/mm3 (1.96-9.15); NEUTROPHILS PERCENT AUTO 76 % (41-73); Platelet Count 336 K/mm3 (150-400); RDW Coefficient Variation 15.6 % (11.7-14.2); RDW Standard Deviation 51.3 fL (35.1-46.3); Red Blood Cell Count 2.34 M/mm3 (3.80-5.20); White Blood Cell Count 17.77 K/mm3 (4.00-11.30)
--- NOTE | 2020-10-15 09:30 | NUR ---
AWARE OF DROP IN HBG. 9.9-7.5.
--- NOTE | 2020-10-15 17:08 | NUR ---
AWARE OF BP 95/62-93. IN TO VISIT PATIENT.
--- NOTE | 2020-10-15 17:54 | NUR ---
ALERT. ORIENTED. OOB TO BSC AND TO RECLINER. COOPERATIVE. MEDICATED T/O SHIFT FOR PAIN WITH GOOD RESULTS. UNLABORED RESPIRATIONS. 1-2 PERSON ASSIST. NO ACUTE CHANGES. WCTM
--- NOTE | 2020-10-16 06:01 | NUR ---
AIR MOTOR REPAIRER SUMMARY PT A/O X4. AMBULATED WITH 1 ASSIST TO THE BSC. TELE SR IN THE 90'S. ROOM AIR, DENIES SOB, NAUSEA. MEDICATED FOR CHRONIC PAIN X2 DURING NOC SHIFT. PT USES CALL LIGHT APPROPRIATELY. NO ACUTE CHANGES. CALL LIGHT WITHIN REACH.
[2020-10-16 07:53] LABS: BASOPHILS ABSOLUTE AUTO 0.05 K/mm3 (0.00-0.23); BASOPHILS PERCENT AUTO 0 % (0-2); EOSINOPHILS ABSOLUTE AUTO 0.12 K/mm3 (0.00-0.68); EOSINOPHILS PERCENT AUTO 1 % (0-6); Hematocrit 20.3 % (33.0-51.0); Hemoglobin 7.1 g/dL (11.5-16.0); IMMATURE GRAN ABSOLUTE AUTO 0.37 K/mm3 (0.00-0.10); IMMATURE GRAN PERCENT AUTO 3 % (0-1); LYMPHOCYTES ABSOLUTE AUTO 2.33 K/mm3 (0.84-5.20); LYMPHOCYTES PERCENT AUTO 16 % (21-46); MONOCYTES ABSOLUTE AUTO 1.53 K/mm3 (0.16-1.47); MONOCYTES PERCENT AUTO 10 % (4-13); Mean Corpuscular Volume 89 fL (80-100); Mean Platelet Volume 9.3 fL (9.1-12.4); NEUTROPHILS ABSOLUTE AUTO 10.57 K/mm3 (1.96-9.15); NEUTROPHILS PERCENT AUTO 71 % (41-73); Platelet Count 296 K/mm3 (150-400); RDW Coefficient Variation 15.6 % (11.7-14.2); RDW Standard Deviation 49.1 fL (35.1-46.3); Red Blood Cell Count 2.29 M/mm3 (3.80-5.20); White Blood Cell Count 14.97 K/mm3 (4.00-11.30)
--- NOTE | 2020-10-16 11:50 | NUR ---
dr. hernandez aware patient ride here. waiting for d'c orders
[2020-10-16] MEDS ORDERED: CEFP200 PO (12:58)
[2020-10-16] MEDS ORDERED: VALA500 PO (12:58)
--- NOTE | 2020-10-16 13:15 | NUR ---
REVIEW D'C W/PATIENT AND FAMILY. AWARE RX X 2 AT [facility]. REVIEW NEW MEDS. AWARE HAS F/U APPT W/PCP NEXT WEEK. HAS PAIN MEDS AT HOME AND WILL CALL HER PCP WHEN SHE NEEDS A REFILL. AWARE CAN RETURN TO E.R. IF WORSENING SYMPTOMS. ANSWER ALL QUESTIONS. IN HOME W/C TO POV.
== END 2020-10-16 13:20 | disposition home or self-care (01) | DRG 872 ==
LOC: ER 16:28 → MEDS 16:29
PROVIDERS: Internal Medicine; Physician Assistant; ADMIT Internal Medicine
DX: A41.9 Sepsis, unspecified organism (principal); N39.0 Urinary tract infection, site not specified; G62.9 Polyneuropathy, unspecified; E87.6 Hypokalemia; B00.1 Herpesviral vesicular dermatitis; J44.9 Chronic obstructive pulmonary disease, unspecified; Z79.899 Other long term (current) drug therapy; F41.9 Anxiety disorder, unspecified; Z79.82 Long term (current) use of aspirin; G89.29 Other chronic pain; M54.9 Dorsalgia, unspecified; Z90.49 Acquired absence of other specified parts of digestive tract; Z98.51 Tubal ligation status; Z98.890 Other specified postprocedural states; Z98.84 Bariatric surgery status; Z23 Encounter for immunization
CPT/HCPCS: 36415; 71045; 80053; 81001; 83690; 84484; 85025; 87077; 87086; 87186; 93005; 93010; 96361; 96365; 96367; 96372-59; 96375; 96376; 97110; 97162; 97166; 97530; 97535; 99285-25; A9270; G0008; G0378; J0696; J1650; J1885; J3010; J7030; J7120; P9046; Q2038

== ENCOUNTER 2020-10-24 02:36 | Inpatient (IN) | payer BC ==
[~2020-10-24] VITALS: Ht 162.6 cm; Wt 87.5 kg
[~2020-10-24 02:36] MED LIST changes: +CEFP200 PO; +HYSINGLA ER60 MG PO; +VALA500 PO
[2020-10-24 03:21] LABS: BASOPHILS ABSOLUTE AUTO 0.03 K/mm3 (0.00-0.23); BASOPHILS PERCENT AUTO 0 % (0-2); EOSINOPHILS PERCENT AUTO 0 % (0-6); IMMATURE GRAN ABSOLUTE AUTO 0.58 K/mm3 (0.00-0.10); IMMATURE GRAN PERCENT AUTO 3 % (0-1); LYMPHOCYTES ABSOLUTE AUTO 2.22 K/mm3 (0.84-5.20); LYMPHOCYTES PERCENT AUTO 10 % (21-46); MONOCYTES ABSOLUTE AUTO 1.54 K/mm3 (0.16-1.47); MONOCYTES PERCENT AUTO 7 % (4-13); Mean Corpuscular HGB 30.8 pg (26.0-34.0); Mean Corpuscular Volume 91 fL (80-100); Mean Platelet Volume 10.1 fL (9.1-12.4); NEUTROPHILS ABSOLUTE AUTO 18.63 K/mm3 (1.96-9.15); NEUTROPHILS PERCENT AUTO 81 % (41-73); Platelet Count 300 K/mm3 (150-400); RDW Standard Deviation 53.4 fL (35.1-46.3); Red Blood Cell Count 1.69 M/mm3 (3.80-5.20)
[2020-10-24 03:23] LABS: Hematocrit 15.3 % (33.0-51.0); Hemoglobin 5.2 g/dL (11.5-16.0)
[2020-10-24 03:33] LABS: Alanine Aminotransfer (ALT/SGP 37 U/L (12-78); Albumin, Blood 1.2 g/dL (3.4-5.0); Albumin/Globulin Ratio 0.3 (0.8-1.8); Alk Phos 179 U/L (50-136); Anion Gap 11 mmol/L (6-16); Aspartate Aminotrans (AST/SGOT 123 U/L (12-37); Bilirubin, Total 0.4 mg/dL (0.1-1.0); Blood Urea Nitrogen 6 mg/dL (8-24); Bun/Creatinine Ratio 8.4 (12.0-20.0); CO2, Blood 20 mmol/L (21-32); Calcium, Blood 7.1 mg/dL (8.5-10.1); Chloride, Blood 105 mmol/L (98-108); Creatinine, Blood 0.71 mg/dL (0.40-1.00); Globulin, Blood 3.7 g/dL (2.2-4.0); Glomerular Filtration Rate >60 (60-); Glucose, Blood 103 mg/dL (70-99); Potassium, Blood 3.9 mmol/L (3.5-5.5); Sodium, Blood 136 mmol/L (136-145); Total Protein, Blood 4.9 g/dL (6.4-8.2); Troponin I <0.015 ng/mL (0.000-0.040)
[2020-10-24 05:08] LABS: Ethanol (Alcohol), Blood, Med <3 mg/dL
[2020-10-24 09:42] LABS: International Normalized Ratio 1.33
--- NOTE | 2020-10-24 10:00 | NUR ---
PT ARRIVES TO ICU VIA GURNEY FROM ER AT 0737 FOR GI BLEED. REPORT FROM JONATHAN BERMUDEZ. PT A&OX4. ANSWERS QUESTIONS APPROPRIATELY, FOLLOWS COMMANDS. PT C/O HEMATEMESIS X 24 HOURS. REPORTS ABD PAIN. DENIES HX OF SAME. REPORTS RECENTLY BEING TREATED FOR UTI AND YEAST INFECTION. PENDING RIGHT HIP SX FOR FRACTURE. STATES SHE HAD TO WAIT UNTIL SORE ON LEFT HIP WAS HEALED. FIRST UNIT OF PBRCS INFUSING. CANAS CATH PLACED, CLOUDY YELLOW URINE SENT TO LAB. PT POSITIONED FOR PICC PLACEMENT. C/O NAUSEA, MEDICATED c ZOFRAN. SMALL AMOUNT OF BRIGHT RED BLOOD SPIT OUT. HR INCREASED TO 150'S, BP DIFFICULT TO OBTAIN. PT PALE. DR MCCOY CALLED. ADDITIONAL 2 UNITS OF PBRC'S, 1L NS, LEVOPHED AND VASOPRESSIN ORDERED. PORT TRAFFIC MANAGER CONSULTED. DR VICTORIA CALLED AND ROUNDED AT BEDSIDE. PLAN TO STABILIZE AND SCOPE. NO EMESIS OR STOOLS, ABD ROUND, SOFT, TENDER THROUGHOUT. EDEMA IN LOWER EXTREMITIES, 3+. PERIPHERAL PULSES BY DOPPLER ONLY. WILL CONTINUE TO MONITOR CLOSELY.
[2020-10-24 10:09] LABS: Source, Urine Catheter
[2020-10-24 10:12] LABS: Appearance, Urine Hazy (Clear); Bilirubin, Urine Neg (Neg); Blood, Urine 2+ (Neg); Color, Urine Yellow (P-Yellow); Glucose Qualitative, Urine Neg (Neg); Ketones, Urine Neg (Neg); Leukocyte Esterase, Urine 3+ (Neg); Nitrite, Urine Neg (Neg); Protein, Urine 2+ (Neg); Urobilinogen, Urine NORM (Normal)
[2020-10-24 10:20] LABS: Bacteria Many /hpf; Squamous Epithelial Cells Rare /hpf (Few); Transitional Epithelial Cells Rare /hpf (0-Rare); White Blood Cells, Urine 50-100 /hpf (0-5)
[2020-10-24 10:34] LABS: Influenza A, PCR NEGATIVE (NEGATIVE); Influenza B, PCR NEGATIVE (NEGATIVE); Resp Syncytial Virus, PCR NEGATIVE (NEGATIVE); SARS-Cov-2 (COVID-19) PCR, MMC NEGATIVE (NEGATIVE)
[2020-10-24 10:45] LABS: Base Excess Venous -21.8 mmol/L; Bicarbonate Venous 9.5 mmol/L (24.0-30.0); PCO2 Venous 23.6 mmHg (38-42); PO2 Venous 186 mmHg (38-42); pH Blood Venous 7.12 (7.34-7.37)
[2020-10-24 10:53] LABS: Hematocrit 24.1 % (33.0-51.0); Hemoglobin 8.1 g/dL (11.5-16.0)
--- NOTE | 2020-10-24 12:17 | NUR ---
10/24/20 1217 Esmer Horn History, Chart, Medications and Allergies reviewed before start of procedure.ICU NURSE confirms NPO status and SON agrees with scheduled surgery.PT CURRENTLY INTUBATED AND MONITORED BY GOLF BALL TRIMMER VANESSA. O2 VIA N/C INTACT THROUGHOUT SEDATION/PROCEDURE.MONITOR INTACT WITH CONTINUOUS PULSE OXIMETRY AND INTERMITTENT BP.3-LEAD EKG REVIEWED WITH PHYSICIAN PRIOR TO START OF PROCEDURE.
--- NOTE | 2020-10-24 12:33 | NUR ---
PT IN ICU FOR PROCEDURE. CONSENT OBTAINED FROM PT SON, ANAY GUTIERREZ RN. History, Chart, Medications and Allergies reviewed before start of procedure.TOW TRUCK DISPATCHER confirms NPO status and SON agrees with scheduled surgery. PT INTUBATED UPON ARRIVAL. TOW TRUCK DISPATCHER PRESENT TO MONITOR INTUBATION.
--- NOTE | 2020-10-24 12:44 | NUR ---
1010 DR LUCAS AT BEDSIDE. PT RESTLESS, C/O SOB, ANXIOUS. ASKING IF WE CAN HELP HER BREATH. O2 SATS 100% ON RA. ENCOURAGED SLOW RESP. PT UNABLE TO BE COACHED D/T ANXIETY. HR INCREASED TO 150'S AGAIN. UNABLE TO OBTAIN BP. DECISION MADE TO INTUBATE. MEDICATED c ETOMIDATE AND ROCURONIUM, INTUBATED AT 1030. LEVOPHED, VASOPRESSIN, AND EPI GTT TO OBTAIN MAP, DR LUCAS ATTEMPTED ART LINE MULTIPLE TIMES s SUCCESS. CONTINUED TO TRANSFUSE, 6 UNITS PRBCS AND 1 PLATLET, 2 FFP AT THIS TIME. ABD ROUND, FIRM. ALSO MEDICATED c BICARB, CA GLUCONATE, AND ROCEPHIN. PT UNRESPONSIVE, MOVES MOUTH SLIGHTLY. NO PURPOSEFUL MOVEMENT. PT CONTINUES TO BE PALE, MOTTLING TO EXTREMITIES AND ABD. PRECIOUS RED BLOOD SUCTIONED FROM MOUTH. ENDO TEAM HERE FOR PROCEDURE. PALLATIVE CARE RN WORKING c FAMILY.
--- NOTE | 2020-10-24 13:11 | NUR ---
ENDO COMPLETE. ONE CLIP PLACED. ATTEMPTS TO TRANSFER TO FACILITY c IR. CONTINUE TO HAVE DIFFICULTIES OBTAINING BP AND O2 SATS. SBP 50-60'S BY DOPPLER. PRESSORS CONTINUE. FAMILY AT BEDSIDE.
--- NOTE | 2020-10-24 13:21 | NUR ---
Called to meet [facility] family for critically ill pt. Assisted physician with conversation on prognosis and risk for plan of care. Pt plan is to tranfer to high level of care if if we can stablize her.
[2020-10-24 13:22] LABS: Mean Corpuscular HGB 30.9 pg (26.0-34.0); Mean Corpuscular HGB Conc 31.8 g/dL (31.5-36.5); Mean Platelet Volume 10.5 fL (9.1-12.4); NRBC ABSOLUTE 0.08 K/mm3 (0.00-0.02); NRBC Auto 0.4 /100 WBC (0.0-0.2); Platelet Count 92 K/mm3 (150-400); RDW Coefficient Variation 14.8 % (11.7-14.2); RDW Standard Deviation 51.6 fL (35.1-46.3); Red Blood Cell Count 1.52 M/mm3 (3.80-5.20); White Blood Cell Count 21.19 K/mm3 (4.00-11.30)
[2020-10-24 13:23] LABS: Base Excess Venous -23.6 mmol/L; Bicarbonate Venous 8.1 mmol/L (24.0-30.0); PO2 Venous 149 mmHg (38-42)
[2020-10-24 13:25] LABS: pH Blood Venous 7.02 (7.34-7.37)
[2020-10-24 13:35] LABS: Hematocrit 14.8 % (33.0-51.0); Mean Corpuscular Volume 97 fL (80-100)
[2020-10-24 13:37] LABS: Hemoglobin 4.7 g/dL (11.5-16.0)
[2020-10-24 13:46] LABS: BAND PERCENT MAN 2 % (0-8); BASOPHILS PERCENT MAN 0 % (0-2); EOSINOPHILS ABSOLUTE MAN 0.21 K/mm3 (0.00-0.68); EOSINOPHILS PERCENT MAN 1 % (0-6); LYMPHOCYTES PERCENT MAN 17 % (21-46); METAMYELOCYTE ABSOLUTE MAN 0.21 K/mm3 (0.00-0.00); METAMYELOCYTE PERCENT MAN 1 % (0-0); MONOCYTES ABSOLUTE MAN 0.21 K/mm3 (0.16-1.47); MONOCYTES PERCENT MAN 1 % (4-13); MYELOCYTE ABSOLUTE MAN 0.21 K/mm3 (0.00-0.00); MYELOCYTE PERCENT MAN 1 % (0-0); NEUTROPHILS ABSOLUTE MAN 16.74 K/mm3 (1.96-9.15); SEG NEUTROPHILS PERCENT MAN 77 % (41-73); TOTAL CELLS COUNTED 100
[2020-10-24 13:48] LABS: Alanine Aminotransfer (ALT/SGP 14 U/L (12-78); Albumin, Blood 1.3 g/dL (3.4-5.0); Albumin/Globulin Ratio 0.9 (0.8-1.8); Alk Phos 63 U/L (50-136); Anion Gap 26 mmol/L (6-16); Aspartate Aminotrans (AST/SGOT 48 U/L (12-37); Bilirubin, Total 0.5 mg/dL (0.1-1.0); Blood Urea Nitrogen 6 mg/dL (8-24); Bun/Creatinine Ratio 8.4 (12.0-20.0); CO2, Blood 9 mmol/L (21-32); Calcium, Blood 6.8 mg/dL (8.5-10.1); Chloride, Blood 97 mmol/L (98-108); Creatinine, Blood 0.71 mg/dL (0.40-1.00); Globulin, Blood 1.4 g/dL (2.2-4.0); Glomerular Filtration Rate >60 (60-); Glucose, Blood 607 mg/dL (70-99); Potassium, Blood 5.4 mmol/L (3.5-5.5); Sodium, Blood 132 mmol/L (136-145); Total Protein, Blood 2.7 g/dL (6.4-8.2)
--- NOTE | 2020-10-24 13:57 | NUR ---
Patient's spouse, Aura, is bedside and having difficulty processing what is happening with his and having loud out bursts at times. Palliative Care RN Izabella Story and I walk Aura back to ICU waiting rm. I provide comfort and support while he works through the steps that led to this upsetting moment. I conduct a life review. Patient's sons arrive in waiting rm and one son(Rishabh) and Aura immediately start yelling at each other. Aura explains the family unit complications. When I introduce myself to Rishabh and state that I am a senior health educator he cusses and leaves the rm and won't enter waiting rm until the doctor comes in with news of patient's condition. I walk Aura back to patient's rm and provide a calming presence until Aura asks for the sons to come back. So that Rishabh doesn't feel uncomfortable I step out. I will continue to remain available
--- NOTE | 2020-10-24 15:34 | NUR ---
PT TO CT AND BACK. CONTINUES ON PRESSORS. DOPPLER SBP ONLY, IRREGULAR, RANGING FROM 60-110'S. OGT PLACED ON ARRIVAL BACK TO ROOM. 400ML OUT OF PRECIOUS RED BLOOD. ABD CONTINUES TO BE RIDGED. AWAITING REPEAT LABS AND MORE BLOOD PRODUCTS. DR LUCAS AT BEDSIDE FOR ART LINE PLACEMENT.
[2020-10-24 15:39] LABS: Hematocrit 27.2 % (33.0-51.0); Hemoglobin 8.7 g/dL (11.5-16.0)
--- NOTE | 2020-10-24 16:14 | NUR ---
Review of pt with nursing continues to have high output of keith blood and poor hemodynamics.
[2020-10-24 17:01] LABS: Fibrinogen 54 mg/dL (170-430)
[2020-10-24 17:26] LABS: PCO2 Venous 43.1 mmHg (38-42); pH Blood Venous 6.81 (7.34-7.37)
[2020-10-24 17:27] LABS: Base Excess Venous -27.9 mmol/L; Bicarbonate Venous 5.7 mmol/L (24.0-30.0); PO2 Venous 62.8 mmHg (38-42)
[2020-10-24 17:29] LABS: BASOPHILS ABSOLUTE AUTO 0.09 K/mm3 (0.00-0.23); BASOPHILS PERCENT AUTO 0 % (0-2); Hematocrit 28.9 % (33.0-51.0); Mean Corpuscular HGB 31.3 pg (26.0-34.0); Mean Corpuscular HGB Conc 31.1 g/dL (31.5-36.5); Mean Corpuscular Volume 100 fL (80-100); Mean Platelet Volume 10.4 fL (9.1-12.4); NRBC ABSOLUTE 0.19 K/mm3 (0.00-0.02); NRBC Auto 0.8 /100 WBC (0.0-0.2); Platelet Count 71 K/mm3 (150-400); RDW Coefficient Variation 14.3 % (11.7-14.2); RDW Standard Deviation 51.7 fL (35.1-46.3); Red Blood Cell Count 2.88 M/mm3 (3.80-5.20); White Blood Cell Count 22.39 K/mm3 (4.00-11.30)
[2020-10-24 17:30] LABS: EOSINOPHILS ABSOLUTE AUTO 0.01 K/mm3 (0.00-0.68); EOSINOPHILS PERCENT AUTO 0 % (0-6); IMMATURE GRAN ABSOLUTE AUTO 1.35 K/mm3 (0.00-0.10); IMMATURE GRAN PERCENT AUTO 6 % (0-1); LYMPHOCYTES ABSOLUTE AUTO 4.58 K/mm3 (0.84-5.20); LYMPHOCYTES PERCENT AUTO 21 % (21-46); MONOCYTES ABSOLUTE AUTO 2.33 K/mm3 (0.16-1.47); MONOCYTES PERCENT AUTO 10 % (4-13); NEUTROPHILS ABSOLUTE AUTO 14.03 K/mm3 (1.96-9.15); NEUTROPHILS PERCENT AUTO 63 % (41-73)
--- NOTE | 2020-10-24 17:46 | NUR ---
LANCE DACOSTA AND JANELLE AT BEDSIDE TO DISCUSS PLAN c FAMILY. DISCUSSED PROS/CONS c TRANSFER VS TREATMENT BY JEROMY HERE. ELECTS TO HAVE PROCEDURE COMPLETED HERE.
[2020-10-24 17:52] LABS: Alanine Aminotransfer (ALT/SGP 21 U/L (12-78); Albumin, Blood 1.2 g/dL (3.4-5.0); Albumin/Globulin Ratio 0.9 (0.8-1.8); Alk Phos 90 U/L (50-136); Anion Gap 27 mmol/L (6-16); Aspartate Aminotrans (AST/SGOT 140 U/L (12-37); Bilirubin, Total 0.5 mg/dL (0.1-1.0); Blood Urea Nitrogen 7 mg/dL (8-24); Bun/Creatinine Ratio 8.4 (12.0-20.0); CO2, Blood 9 mmol/L (21-32); Calcium, Blood 6.7 mg/dL (8.5-10.1); Chloride, Blood 94 mmol/L (98-108); Creatinine, Blood 0.83 mg/dL (0.40-1.00); Globulin, Blood 1.3 g/dL (2.2-4.0); Glomerular Filtration Rate >60 (60-); Glucose, Blood 604 mg/dL (70-99); Potassium, Blood 4.7 mmol/L (3.5-5.5); Sodium, Blood 130 mmol/L (136-145); Total Protein, Blood 2.5 g/dL (6.4-8.2)
--- NOTE | 2020-10-24 18:26 | NUR ---
SHIFT SUMMARY PT INTUBATED AND SEDATED. VENT SETTINGS AC 15/440/5/50%. LUNGS CLEAR. PT HAS COPIOUS ORAL, BRIGHT RED SECRETIONS, 500 ML OUT THIS SHIFT. UNABLE TO OBTAIN MANUAL OR AUTOMATIC BP, SBP 60-100'S BY DOPPLER. PT PALE, COOL. DARRIUS HUGGER IN PLACE. LEVO, VASOPRESSIN, EPI GTT MAXED FOR BP. PT HAD 11 UNITS PBRC, 2 UNITS PLATLETS, 4 UNITS OF FFP TRANSFUSED. PICC TO LUE, OOZING. OGT IN PLACE. 1200 ML OF PRECIOUS RED BLOOD OUT THIS SHIFT. ABD FIRM, DISTENDED. MOTTLED. BICARB GTT INFUSING AT 200 ML/HR, 3 AMPS GIVEN. PROPOFOL GTT AT 20 MCG/KG/MIN, PT NON RESPONSIVE. NO PURPOSEFUL MOVEMENTS. CANAS PATENT, DRAINING CLOUDY YELLOW URINE TO GRAVITY. 200 ML OUT THIS SHIFT. AWAITING DR PINZON AND TECHNICAL SOLUTION ARCHITECT TEAM. WILL CONTINUE TO MONITOR UNTIL REPORT TO ONCOMING NURSE.
[2020-10-24 18:31] LABS: BASOPHILS ABSOLUTE MAN 0.22 K/mm3 (0.00-0.23); BASOPHILS PERCENT MAN 1 % (0-2); EOSINOPHILS PERCENT MAN 0 % (0-6); LYMPHOCYTES ABSOLUTE MAN 5.37 K/mm3 (0.84-5.20); LYMPHOCYTES PERCENT MAN 24 % (21-46); MONOCYTES ABSOLUTE MAN 1.79 K/mm3 (0.16-1.47); MONOCYTES PERCENT MAN 8 % (4-13); SEG NEUTROPHILS PERCENT MAN 67 % (41-73); TOTAL CELLS COUNTED 100
[2020-10-24 19:04] LABS: Base Excess Venous -25.6 mmol/L; Bicarbonate Venous 6.9 mmol/L (24.0-30.0); PCO2 Venous 40.7 mmHg (38-42); PO2 Venous 52.3 mmHg (38-42)
[2020-10-24 19:05] LABS: pH Blood Venous 6.88 (7.34-7.37)
[2020-10-24 19:09] LABS: Hematocrit 26.7 % (33.0-51.0); Hemoglobin 8.2 g/dL (11.5-16.0)
[2020-10-24 19:10] LABS: Mean Platelet Volume 10.5 fL (9.1-12.4); Platelet Count 55 K/mm3 (150-400)
[2020-10-24 20:17] LABS: Fibrinogen 57 mg/dL (170-430); Prothrombin Time Results 22.5 Sec (9.7-11.5)
[2020-10-24 21:23] LABS: PCO2 Arterial 21.7 mmHg (35-45); PO2 Arterial 263 mmHg (80-100); pH Blood Arterial 6.94 (7.35-7.45)
[2020-10-24 21:33] LABS: Hematocrit 24.7 % (33.0-51.0); Hemoglobin 7.4 g/dL (11.5-16.0)
[2020-10-24 21:56] LABS: Magnesium, Blood 1.9 mg/dL (1.6-2.4)
[2020-10-24 21:57] LABS: Fibrinogen 99 mg/dL (170-430)
[2020-10-24 21:58] LABS: Prothrombin Time Results 17.7 Sec (9.7-11.5)
[2020-10-24 22:00] LABS: Anion Gap 36 mmol/L (6-16); Blood Urea Nitrogen 7 mg/dL (8-24); CO2, Blood 6 mmol/L (21-32); Chloride, Blood 81 mmol/L (98-108); Creatinine, Blood 0.78 mg/dL (0.40-1.00); Glomerular Filtration Rate >60 (60-); Glucose, Blood 912 mg/dL (70-99); Potassium, Blood 5.3 mmol/L (3.5-5.5); Sodium, Blood 123 mmol/L (136-145)
[2020-10-24 22:35] LABS: Calcium, Blood 8.3 mg/dL (8.5-10.1)
[2020-10-24 22:52] LABS: Glucose, Blood 900 mg/dL (70-99)
[2020-10-24 23:22] LABS: Hematocrit 23.6 % (33.0-51.0); Hemoglobin 7.2 g/dL (11.5-16.0)
[2020-10-25 00:27] LABS: Glucose, Blood 811 mg/dL (70-99)
[2020-10-25 00:44] LABS: Source, Urine Catheter
[2020-10-25 00:52] LABS: Bilirubin, Urine Neg (Neg); Blood, Urine 5+ (Neg); Glucose Qualitative, Urine 4+ (Neg); Ketones, Urine Neg (Neg); Leukocyte Esterase, Urine 1+ (Neg); Nitrite, Urine Neg (Neg); Protein, Urine 3+ (Neg); Specific Gravity, Urine 1.015 (1.003-1.022); Urobilinogen, Urine NORM (Normal)
[2020-10-25 00:58] LABS: Appearance, Urine Hazy (Clear); Color, Urine Yellow (P-Yellow)
[2020-10-25 00:59] LABS: Amorphous Mod (0-Heavy); Bacteria Mod /hpf; Mucus Light (0-Heavy); Red Blood Cells, Urine 25-50 /hpf (0-2); Renal Epithelial Few /hpf (0-Rare); Squamous Epithelial Cells Few /hpf (Few); Transitional Epithelial Cells Few /hpf (0-Rare)
[2020-10-25 01:53] LABS: Glucose, Blood 760 mg/dL (70-99)
--- NOTE | 2020-10-25 02:40 | NUR ---
ASSUMED PT CARE FROM LARA MENDEZ AT 1900 PT INTUBATED AND ON LIGHT SEDATION DURING ASSUMPTION OF CARE. VENT AC 15, VT 440, PEEP 5, FIO2 30%. PT RESP RATE 20'S. UNABLE TO OBTAIN BP; LAST BP OBTAINED WAS VIA DOPPLER WITH SYSTOLIC 100'S PER REPORT. LEVOPHED INFUSING AT 20MCG/MIN, EPINEPHRINE AT 30MCG/MIN, AND VASOPRESSIN AT 0.04 UNIT/MIN. PROPOFOL AT 10MCG/KG/MIN. PROTONIX GTT INFUSING AT 10ML/HR. BICARB GTT AT 200ML/HR. INSULIN STARTED PRIOR TO LEAVING TO NURSE ANESTHESIA PROGRAM DIRECTOR; STARTED AT 3 UNITS/HR D/T THE INABILITY TO CHECK BLOOD SUGAR WHILE DOWN IN NURSE ANESTHESIA PROGRAM DIRECTOR. AT BEDSIDE DURING REPORT. VERY EMOTIONAL AND OVERWHELMED WITH STATUS OF AND ALL THE EXTRA STIMULI. PT NOTED TO BE SINUS TACH WITH HR 110-120'S. UNABLE TO OBTAIN PULSE OXIMETRY READING, WELL BP. NURSE ANESTHESIA PROGRAM DIRECTOR STAFF CALLED DURING REPORT AND STATED THEY WOULD BE DOWN TO HELP TRANSPORT PT IN APPROXIMATELY 10 MINUTES. PT WAS TRANSFERRED TO NURSE ANESTHESIA PROGRAM DIRECTOR AT 190. LABS DRAWN PRIOR TO TRANSFER IN ORDER FOR LAB TO RELEASE THE NEXT MASS TRANSFUSION PROTOCOL. BLOOD PRODUCT ARRIVED IN NURSE ANESTHESIA PROGRAM DIRECTOR AND FFP WAS STARTED FIRST PER DR. PINZON AT 1930; PRESSURE BAG UTILIZE TO TRANSFUSE UNIT. PT RECEIVED A UNIT OF PRBC'S THEREAFTER. LASTLY, PT RECEIVED ONE UNIT OF CRYO AND ONE MORE UNIT OF PRBC'S, WHICH WERE STARTED AT 1999 PRIOR TO TRANSFER BACK TO ICU. WHILE IN NURSE ANESTHESIA PROGRAM DIRECTOR PT WAS TITRATED OFF PROPOFOL D/T THE INABILITY TO OBTAIN BP, AND LEVOPHED WAS INCREASED TO 30MCG/MIN. 2 GRAMS OF CALCIUM CHLORIDE ADMINISTERED DURING PROCEDURE D/T A CRITICAL CALCIUM LEVEL OF 5.9. UPON RETURNING TO ICU PT'S ARTERIAL LINE WAS ZEROED AND WAS DISPLAYING SYSTOLIC PRESSURE OF 160; HOWEVER, PER NURSE ANESTHESIA PROGRAM DIRECTOR STAFF PRESSURES WERE MOST LIKELY GOING TO BE FALSELY ELEVATED D/T HOW VASOCONSTRICTED PT WAS, WELL HOW VASOCONSTRICTED THE RIGHT RENAL ARTERY WAS. PULSE WAS PALPATED AT THIS TIME AND STILL VERY WEAK. PRESSORS WERE LEFT THEY WERE AND TITRATIONS HAPPENED VERY SLOWLY. PT IS CURRENTLY OFF THE EPINEPHRINE, LEVOPHED IS AT 25MCG/MIN, AND VASOPRESSIN STILL INFUSING. INSULIN GTT IS AT 10 UNITS/HR WITH BLOOD SUGARS STILL >700. BICARB REMAINS AT 200MLS/HR AND PROTONIX IS STILL INFUSING. PROPOFOL RESTARTED UPON RETURN FROM NURSE ANESTHESIA PROGRAM DIRECTOR D/T PT HAVING PURPOSEFUL MOVEMENT TOWARD ETT. DOESN'T FOLLOW COMMANDS, BUT ABLE TO MOVE HEAD SIDE TO SIDE IN BED. THEREFORE, BILATERAL SOFT WRIST RESTRAINTS APPLIED AT 2130 AND PROPFOL RESTARTED AT 15MCG/KG/MIN. CANAS CATHETER REPLACED D/T THE NEED TO OBTAIN INTERNAL TEMPERATURE. 16F REPLACED AND URINE SENT TO LAB; TEMP AT 93.0. THEREFORE, DARRIUS HUGGER APPLIED AND TEMP IS NOW UP TO 97.0. PT IS MOTTLED TO HER NECK, CHEST, ABDOMEN, AND BLE'S. PT IS BEGINNING TO WARM UP WITH BETTER CAPILLARY REFILL. SHE IS VERY EDEMATOUS. FACIAL AND NECK EDEMA NOTED. SCLERA EDEMA NOTED. +2 PITTING TO BLE. JVD NOTED UPON RETURN FROM NURSE ANESTHESIA PROGRAM DIRECTOR. PT IS OOZING FROM ALL PUNCTURED AREAS FROM EARLIER ATTEMPTS TO OBTAIN CENTRAL AND ARTERIAL LINES. PT IS VERY BRUISED WELL. SEE SHIFT ASSESSMENT FOR FURTHER DETAILS. PT ALSO RECEIVED A TOTAL OF 3 FFP'S, ONE UNIT OF PRBC'S, AND ONE UNIT OF CRYO UPON RETURN TO THE ICU. WILL CONTINUE TO MONITOR AND TITRATE MEDICATIONS ACCORDINGLY. FAMILY HAS BEEN UPDATED AND WENT HOME FOR THE NIGHT.
[2020-10-25 02:46] LABS: Glucose, Blood 769 mg/dL (70-99)
[2020-10-25 03:25] LABS: Hematocrit 29.7 % (33.0-51.0); Hemoglobin 9.6 g/dL (11.5-16.0); Mean Corpuscular HGB Conc 32.3 g/dL (31.5-36.5); Mean Platelet Volume 11.2 fL (9.1-12.4); NRBC ABSOLUTE 0.59 K/mm3 (0.00-0.02); NRBC Auto 4.9 /100 WBC (0.0-0.2); RDW Coefficient Variation 15.9 % (11.7-14.2); White Blood Cell Count 12.16 K/mm3 (4.00-11.30)
[2020-10-25 03:38] LABS: International Normalized Ratio 1.66; Prothrombin Time Results 17.3 Sec (9.7-11.5)
[2020-10-25 03:48] LABS: Magnesium, Blood 1.5 mg/dL (1.6-2.4)
[2020-10-25 03:52] LABS: Mean Corpuscular Volume 93 fL (80-100)
[2020-10-25 03:53] LABS: Platelet Count 36 K/mm3 (150-400)
[2020-10-25 03:55] LABS: Alanine Aminotransfer (ALT/SGP 155 U/L (12-78); Albumin, Blood 1.9 g/dL (3.4-5.0); Albumin/Globulin Ratio 0.9 (0.8-1.8); Alk Phos 137 U/L (50-136); Anion Gap 35 mmol/L (6-16); Aspartate Aminotrans (AST/SGOT 1316 U/L (12-37); Bilirubin, Total 1.2 mg/dL (0.1-1.0); Blood Urea Nitrogen 7 mg/dL (8-24); Bun/Creatinine Ratio 7.2 (12.0-20.0); CO2, Blood 8 mmol/L (21-32); Calcium, Blood 7.7 mg/dL (8.5-10.1); Chloride, Blood 80 mmol/L (98-108); Creatinine, Blood 0.97 mg/dL (0.40-1.00); Globulin, Blood 2.2 g/dL (2.2-4.0); Glomerular Filtration Rate >60 (60-); Glucose, Blood 739 mg/dL (70-99); Phosphorus, Blood 8.5 mg/dL (2.5-4.9); Potassium, Blood 4.1 mmol/L (3.5-5.5); Sodium, Blood 123 mmol/L (136-145); Total Protein, Blood 4.1 g/dL (6.4-8.2)
[2020-10-25 05:37] LABS: BAND PERCENT MAN 8 % (0-8); BASOPHILS ABSOLUTE MAN 0.12 K/mm3 (0.00-0.23); BASOPHILS PERCENT MAN 1 % (0-2); EOSINOPHILS PERCENT MAN 0 % (0-6); LYMPHOCYTES ABSOLUTE MAN 1.82 K/mm3 (0.84-5.20); LYMPHOCYTES PERCENT MAN 15 % (21-46); METAMYELOCYTE ABSOLUTE MAN 0.24 K/mm3 (0.00-0.00); METAMYELOCYTE PERCENT MAN 2 % (0-0); MONOCYTES ABSOLUTE MAN 0.72 K/mm3 (0.16-1.47); MONOCYTES PERCENT MAN 6 % (4-13); NEUTROPHILS ABSOLUTE MAN 9.24 K/mm3 (1.96-9.15); SEG NEUTROPHILS PERCENT MAN 68 % (41-73); TOTAL CELLS COUNTED 100
--- NOTE | 2020-10-25 06:11 | NUR ---
END OF SHIFT SUMMARY NO SIGNIFICANT CHANGES SINCE LAST ENTRY. EPINEPHRINE IS ON STANDBY, LEVOPHED AT 30MCG/MIN, VASOPRESSIN AT 0.04 UNITS/MIN. NO CHANGES TO VENTILATOR SETTINGS. PROPOFOL REMAINS AT 15MCG/KG/MIN. BICARB GTT AT 200MLS/HR. INSULIN GTT CURRENTLY AT 12 UNITS/HR. STILL UNABLE TO OBTAIN READINGS FROM GLUCOMETER; THEREFORE, UTILIZING ISTAT SINCE BLOOD SUGAR IS >500. LAST SUGAR WAS 646. PHARMACY CALLED REGARDING CHANGING OUT FLUIDS TO NORMAL SALINE TO DECREASE THE AMOUNT OF DEXTROSE PT IS RECEIVING, WELL CHANGING LEVOPHED TO DOUBLE STRENGTH BAG TO DECREASE THE AMOUNT OF FLUIDS PT IS RECEIVING. PT RECEIVED PLATELETS THIS MORNING D/T CRITICAL LOW OF 36. PT IS CONTINUING TO PRODUCE MODERATE AMOUNTS OF BLOOD FROM ORAL CAVITY. 250CC OF BLOOD DISPOSED OF FROM OG/NG CANISTER. NO BOWEL MOVEMENT THIS SHIFT. ABDOMEN REMAINS FIRM TO PALPATION WITH NO BOWEL TONES NOTED. URINE OUTPUT WAS POOR THIS SHIFT WITH ONLY 100CC ACCOUNTED FOR. PT REMAINS MOTTLED T/O WITH SCATTERED, DIFFUSE BRUISING. PT IS VERY EDEMATOUS, ESPECIALY TO FACE, NECK, AND EYELIDS. WILL CONTINUE TO MONITOR UNTIL REPORT IS HANDED OFF TO ONCOMING RN.
[2020-10-25 08:18] LABS: Glucose, Blood 618 mg/dL (70-99)
--- NOTE | 2020-10-25 08:32 | NUR ---
ASSUMED CARE BEDSIDE REPORT FROM TAHIR BERMUDEZ AT 0700. PT INTUBATED AND SEDATED. VENT SETTINGS AC 15/440/5/30%. RR MID 20'S. LUNGS CLEAR. SMALL AMOUNT OF ORAL BLOODY SECRETIONS. PROPOFOL GTT AT 15 MCG/KG/MIN. PT UNRESPONSIVE. NO COUGH/GAG/SWALLOW REFLEX. PUPILS SLUGGISH. SCLERA EDEMA NOTED. ST, RATE 120'S. LEVO, EPI, VASO GTT FOR MAP >65. BICARB GTT INFUSING, PROTONIX GTT. INSULIN GTT c 1HR CBG. ART LINE TO RIGHT GROIN, ZERO'D. CORDIS TO LEFT GROIN. PICC TO LUE. SKIN IS MOTTLED FROM NECK DOWN. PETECHIA TO NECK AND CHEST. PT VERY EDEMATOUS, 4+ TO BLE. PERIPHERAL PULSES BY DOPPLER ONLY. ABD ROUND, DISTENDED. NO BT HEARD. FIRM. OGT TO LIS c SCANT BLOODY DRAINAGE IN TUBING. CANAS PATENT, DRAINING SCANT AMOUNT OF CLEAR YELLOW URINE TO GRAVITY. WILL CONTINUE TO MONITOR.
[2020-10-25 08:38] LABS: PCO2 Arterial 30.5 mmHg (35-45); PO2 Arterial 52.4 mmHg (80-100)
[2020-10-25 08:39] LABS: pH Blood Arterial 7.09 (7.35-7.45)
[2020-10-25 09:40] LABS: Hematocrit 28.3 % (33.0-51.0); Hemoglobin 9.3 g/dL (11.5-16.0)
[2020-10-25 09:48] LABS: Bun/Creatinine Ratio 6.4 (12.0-20.0); Calcium, Blood 7.5 mg/dL (8.5-10.1); Creatinine, Blood 1.1 mg/dL (0.40-1.00); Potassium, Blood 4.1 mmol/L (3.5-5.5)
[2020-10-25 12:59] LABS: Vancomycin, Trough 28.8 ug/mL (5.0-10.0)
[2020-10-25 13:17] LABS: Hematocrit 23.7 % (33.0-51.0); Mean Corpuscular HGB 30.2 pg (26.0-34.0); Mean Corpuscular HGB Conc 33.8 g/dL (31.5-36.5); Mean Corpuscular Volume 89 fL (80-100); Mean Platelet Volume 10.7 fL (9.1-12.4); NRBC ABSOLUTE 0.92 K/mm3 (0.00-0.02); NRBC Auto 6.5 /100 WBC (0.0-0.2); Platelet Count 90 K/mm3 (150-400); RDW Coefficient Variation 16.1 % (11.7-14.2); RDW Standard Deviation 52.7 fL (35.1-46.3); Red Blood Cell Count 2.65 M/mm3 (3.80-5.20); White Blood Cell Count 14.19 K/mm3 (4.00-11.30)
[2020-10-25 13:27] LABS: PCO2 Arterial 26.1 mmHg (35-45); PO2 Arterial 69.6 mmHg (80-100); pH Blood Arterial 7.04 (7.35-7.45)
[2020-10-25 13:29] LABS: International Normalized Ratio 1.87; Prothrombin Time Results 19.3 Sec (9.7-11.5)
--- NOTE | 2020-10-25 13:40 | NUR ---
DR HERNANDEZ CONSULT DR HERNANDEZ AT BEDSIDE. DISCUSSED POSSIBLE ISCHEMIC BOWEL c CHAYITO. ALSO DISCUSSED COMPLICATIONS ASSOCIATED c SX. PT MAXED ON PRESSOR. UNABLE TO MAINTAIN MAP >65. ABD CONTINUES TO BE FIRM AND DISTENDED. MOTTLING WORSENING. DR LUCAS AWARE. WISHING TO MOVE TO COMFORT CARE. FAMILY CALLED.
[2020-10-25 13:44] LABS: Albumin, Blood 1.5 g/dL (3.4-5.0); Albumin/Globulin Ratio 0.9 (0.8-1.8); Bilirubin, Total 1.4 mg/dL (0.1-1.0); Bun/Creatinine Ratio 5.3 (12.0-20.0); Calcium, Blood 7.3 mg/dL (8.5-10.1); Creatinine, Blood 1.14 mg/dL (0.40-1.00); Globulin, Blood 1.7 g/dL (2.2-4.0); Potassium, Blood 4.2 mmol/L (3.5-5.5); Total Protein, Blood 3.2 g/dL (6.4-8.2)
[2020-10-25 13:58] LABS: BAND PERCENT MAN 3 % (0-8); BASOPHILS PERCENT MAN 0 % (0-2); EOSINOPHILS PERCENT MAN 0 % (0-6); LYMPHOCYTES ABSOLUTE MAN 3.12 K/mm3 (0.84-5.20); LYMPHOCYTES PERCENT MAN 22 % (21-46); METAMYELOCYTE ABSOLUTE MAN 0.14 K/mm3 (0.00-0.00); METAMYELOCYTE PERCENT MAN 1 % (0-0); MONOCYTES ABSOLUTE MAN 1.84 K/mm3 (0.16-1.47); MONOCYTES PERCENT MAN 13 % (4-13); MYELOCYTE ABSOLUTE MAN 0.14 K/mm3 (0.00-0.00); MYELOCYTE PERCENT MAN 1 % (0-0); NEUTROPHILS ABSOLUTE MAN 8.93 K/mm3 (1.96-9.15); SEG NEUTROPHILS PERCENT MAN 60 % (41-73); TOTAL CELLS COUNTED 100
--- NOTE | 2020-10-25 14:36 | NUR ---
Family are at pt's bedside expressing strong emotions and unregulated thoughts. Pt's spouse Aura gives a brief narrative as to the pt's situation and divulges his feelings accordingly. I remained present for a time, acknowledged Aura's emotion and extended validating empathy. Pt's son Rishabh requested this PC leave to allow family time alone. I quietly departed. I will continue to remain available for prospective pastoral support.
--- NOTE | 2020-10-25 15:56 | NUR ---
DR MCCOY AT BEDSIDE TO ANSWER QUESTIONS FROM FAMILY. [place] OPTS TO PROCEED c COMFORT CARE. PRESSORS TURNED OFF AT 1512. TOD 1534. ALL CONSULTS NOTIFIED.
== END 2020-10-25 15:34 | DRG 356 ==
LOC: ER 02:36 → ERHOLD 03:30 → ICUE 03:30
PROVIDERS: Emergency Medicine; Hospitalist; Internal Medicine Critical Care Medicine; Student in an Organized Health Care Education/Training Program; ADMIT Internal Medicine
PROC: 04HY32Z Insertion of Monitoring Device into Lower Artery, Percutaneous Approach (ICD-10-PCS; 2020-10-24)
PROC: 4A133B1 Monitoring of Arterial Pressure, Peripheral, Percutaneous Approach (ICD-10-PCS; 2020-10-24)
PROC: 4A133J1 Monitoring of Arterial Pulse, Peripheral, Percutaneous Approach (ICD-10-PCS; 2020-10-24)
PROC: 0BH17EZ Insertion of Endotracheal Airway into Trachea, Via Natural or Artificial Opening (ICD-10-PCS; 2020-10-24)
PROC: 5A1945Z Respiratory Ventilation, 24-96 Consecutive Hours (ICD-10-PCS; 2020-10-24)
PROC: 04L23DZ Occlusion of Gastric Artery with Intraluminal Device, Percutaneous Approach (ICD-10-PCS; 2020-10-24)
PROC: 3E033XZ Introduction of Vasopressor into Peripheral Vein, Percutaneous Approach (ICD-10-PCS; 2020-10-24)
PROC: 30233K1 Transfusion of Nonautologous Frozen Plasma into Peripheral Vein, Percutaneous Approach (ICD-10-PCS; 2020-10-24)
PROC: 30233R1 Transfusion of Nonautologous Platelets into Peripheral Vein, Percutaneous Approach (ICD-10-PCS; 2020-10-24)
PROC: 30233N1 Transfusion of Nonautologous Red Blood Cells into Peripheral Vein, Percutaneous Approach (ICD-10-PCS; principal; 2020-10-24 12:45)
PROC: 0W3P8ZZ Control Bleeding in Gastrointestinal Tract, Via Natural or Artificial Opening Endoscopic (ICD-10-PCS; 2020-10-24 12:45)
DX: K55.9 Vascular disorder of intestine, unspecified (principal); D65 Disseminated intravascular coagulation [defibrination syndrome]; J96.01 Acute respiratory failure with hypoxia; D62 Acute posthemorrhagic anemia; R64 Cachexia; N17.9 Acute kidney failure, unspecified; E87.2 Acidosis; E87.1 Hypo-osmolality and hyponatremia; Z66 Do not resuscitate; Z51.5 Encounter for palliative care; R57.8 Other shock; K59.9 Functional intestinal disorder, unspecified; Z68.25 Body mass index [BMI] 25.0-25.9, adult; R73.9 Hyperglycemia, unspecified; J44.9 Chronic obstructive pulmonary disease, unspecified; M54.9 Dorsalgia, unspecified; G89.29 Other chronic pain; F17.290 Nicotine dependence, other tobacco product, uncomplicated; Z98.890 Other specified postprocedural states; Z98.84 Bariatric surgery status; Z79.899 Other long term (current) drug therapy; Z90.49 Acquired absence of other specified parts of digestive tract; Z98.51 Tubal ligation status
CPT/HCPCS: 0241U; 31500; 36252; 36415; 36430; 36556; 36569; 36620; 37244; 51702; 71045; 74174; 75726; 75774; 76937; 80048; 80053; 80202; 81001; 82140; 82310; 82330; 82803; 82947; 83690; 83735; 84100; 84484; 85014; 85018; 85025; 85049; 85384; 85610; 85730; 86850; 86900; 86901; 86923; 87077; 87086; 87186; 93005; 93010; 94002; 94003; 96374-59; 96375-59; 96376; 99285-25; C1751; C1769; C1887; C1894; C9113; G0480; J0171; J0610; J0696; J1430; J1644; J1815; J2250; J2354; J2405; J2704; J3010; J3370; J3475; J7030; J7040; J7050; J7060; J7070; P9012; P9016; P9035; P9046; P9053; P9059; Q9967